=== PATIENT | male | born 1950 | race Caucasian/White ===

== ENCOUNTER 2018-02-27 11:43 | Inpatient (IN) | payer OTHER, MEDICARE ==
[2018-02-27] VITALS (8 sets, daily range): BP systolic 140–167; BP diastolic 71–97; PULSE 84–104; RESP 11–18; TEMP 97.3–98.4; O2SAT 98–100
[~2018-02-27] VITALS: Ht 172.7 cm; Wt 74.7 kg
[~2018-02-27 11:43] MED LIST: ADVA250A INH; ALBU8I INH; BETH10TA PO; CYCL1PAK PO; DILA4TAB10 PO; LORTA5 PO; METO25 PO; NICO21DI24 TD; PROT40TA PO; TAMS0.4C67 PO; ZOLP1TAB32 PO
--- NOTE | 2018-02-27 12:25 | PD ---
HPI Chief Complaint: Fall Time Seen by Provider: 12:22 Travel History International Travel<30 days: No Contact w/Intl Traveler<30days: No Traveled to known affect area: No History of Present Illness HPI 67-year-old male with difficulty hearing, presents emergency department status post fall, and hitting his head earlier this morning. This was unwitnessed. Patient is unsure if he had loss of consciousness. Patient is a small wound to the posterior scalp with minimal bleeding noted. Patient has complained of nausea and vomiting since his fall. He denies significant for headache. He has no neck pain. He denies any other injury. He has no history of anticoagulants. He has no known drug allergies. PFSH Past Medical History Cancer: No Cardiovascular Problems: No High Cholesterol: Yes Chemotherapy: No Endocrine: No Genitourinary: No Immune Disorder: No Musculoskeletal: No Neurologic: No Psychiatric: Yes (Remote history of PTSD secondary to active combat in [place]) Reproductive: No Respiratory: No Radiation Therapy: No ?: Unknown Past Surgical History Pacemaker: No Social History Alcohol Use: No Tobacco Use: Yes (1 PPD) Substance Use: No Allergies-Medications (Allergen,Severity, Reaction): Coded Allergies: No Known Allergies (Unverified Adverse Reaction, Unknown, 02/27/18) Reported Meds & Prescriptions Reported Meds & Active Scripts Active Reported Dilaudid (Hydromorphone HCl) 4 Mg Tab 4 Mg PO Q4H PRN Metoprolol Tartrate 25 mg (Metoprolol Tartrate) 25 Mg Tab 25 Mg PO BID Flomax (Tamsulosin HCl) 0.4 Mg Cap 0.4 Mg PO DAILY Ventolin Hfa (Albuterol Sulfate) 8 Gm Aero 1 Puff INH TID * SHAKE WELL BEFORE USE * USE NEEDED FOR WHEEZING AND SHORTNESS OF BREATH Advair Diskus 250/50 (Salmeterol Xinafoate/Fluticasone) 250 Mcg/50 Mcg Inhp 1 Puff INH BID Cyclobenzaprinepax 10 & 0.0375-5 mg & % (Qlsxwkyjzdbvhvp-Rybwpcwun-Wrgx) 10 Mg Tab 10 Mg PO TID Bethanechol Chloride 10 Mg Tab 10 Mg PO TID Nicotine Transdermal Syst (Nicotine) 21 Mg/24 H Dis 21 Mg TD DAILY Protonix (Pantoprazole Sodium) 40 Mg Tab 40 Mg PO BID Ambien 5 Mg Tab (Zolpidem Tartrate) 5 Mg Tab 5 Mg PO HS PRN Hydrocodone/Acetaminophen 5 mg/325 mg 1 Tab Tab 1 Tab PO Q4 PRN TAKE ONE OR TWO TABLETS FOR PAIN. Review of Systems Except as stated in HPI: all other systems reviewed are Neg General / Constitutional: No: Fever Eyes: No: Diploplia, Blurred Vision, Photophobia, Drainage, Redness, Foreign Body Sensation, Pain, Blind Spots, Visual changes HENT: Positive: Lightheadedness, Nosebleed, No: Headaches, Vertigo, Sore Throat , Rhinitis, Rhinorrhea, Congestion (Since his fall.), Neck Stiffness, Neck Pain , Masses, Gingival Bleeding, Dental Difficulties, Ear Discharge, Earache Cardiovascular: No: Chest Pain or Discomfort Respiratory: No: Shortness of Breath Gastrointestinal: Positive: Nausea, Vomiting, No: Diarrhea, Abdominal Pain Genitourinary: No: Dysuria Musculoskeletal: No: Pain Skin: Positive Lesions (See history of present illness), No Rash Neurologic: No: Weakness Psychiatric: No: Depression Endocrine: No: Polydipsia Hematologic/Lymphatic: No: Easy Bruising Physical Exam Narrative GENERAL: Patient appears in mild distress. Patient very hard of hearing. SKIN: Warm and dry. Normal color. Normal turgor. Patient has less than 1 cm superficial black to the posterior scalp with minimal bleeding. HEAD: Normocephalic. Tender in the posterior aspect. EYES: Pupils equal and round. No scleral icterus. No injection or drainage. No nystagmus. ENT: No current nasal bleeding or discharge. TMs are clear bilaterally. Mucous membranes pink and moist. No dental injury. Pharynx is clear. Airways patent NECK: Trachea midline. No bony tenderness or step-off. Neck is supple. Cervical spine cleared utilizing Nexus criteria CARDIOVASCULAR: Regular rate and rhythm. RESPIRATORY: No accessory muscle use. Clear to auscultation. Breath sounds equal bilaterally. GASTROINTESTINAL: Abdomen soft, non-tender, nondistended. Hepatic and splenic margins not palpable. MUSCULOSKELETAL: Extremities without clubbing, cyanosis, or edema. No obvious deformities. NEUROLOGICAL: Awake and alert. No obvious cranial nerve deficits. Motor grossly within normal limits. Five out of 5 muscle strength in the arms and legs. Normal speech. Patient is moving all extremities normally. PSYCHIATRIC: Appropriate mood and affect; insight and judgment normal. Data Data Last Documented VS Vital Signs Date Time Temp Pulse Resp B/P (MAP) Pulse Ox O2 Delivery O2 Flow Rate FiO2 02/27/18 14:00 96 18 152/71 (98) 98 Room Air 02/27/18 11:[address] Brain W/O Iv Contrast(Rout) (02/27/18 12:25) Complete Blood Count With Diff (02/27/18 12:25) Comprehensive Metabolic Panel (02/27/18 12:25) Prothrombin Time / Inr (Pt) (02/27/18 12:25) Act Partial Throm Time (Ptt) (02/27/18 12:25) Iv Access Insert/Monitor (02/27/18 12:25) Ecg Monitoring (02/27/18 12:25) Oximetry (02/27/18 12:25) Sodium Chloride 0.9% Flush (Ns Flush) (02/27/18 12:30) Electrocardiogram (02/27/18 12:25) Chest, Single Ap (02/27/18 12:25) Ckmb (Isoenzyme) Profile (02/27/18 12:25) Magnesium (Mg) (02/27/18 12:25) Troponin I (02/27/18 12:25) Ondansetron Odt (Zofran Odt) (02/27/18 12:30) CKMB (02/27/18 12:45) CKMB% (02/27/18 12:45) Sodium Chlor 0.9% 1000 Ml Inj (Ns 1000 M (02/27/18 14:00) Promethazine Inj (Phenergan Inj) (02/27/18 14:00) Hydromorphone Pf Inj (Dilaudid Pf Inj) (02/27/18 14:30) Prochlorperazine Inj (Compazine Inj) (02/27/18 14:30) Diphenhydramine Inj (Benadryl Inj) (02/27/18 14:30) Admit Order (Ed Use Only) (02/27/18 ) 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 Teacher / Telemetry [place].Q8H (02/27/18 14:51) Vital Signs (Adult) Q4H (02/27/18 14:51) Diet Npo (02/27/18 Dinner) Activity Bed Rest (02/27/18 14:51) Notify Dr: Other (02/27/18 14:51) Bethanechol (Urecholine) (02/27/18 18:00) Metoprolol Tartrate (Lopressor) (02/27/18 21:00) Pantoprazole (Protonix) (02/27/18 21:00) Tamsulosin (Flomax) (02/28/18 09:00) (Nf) Fluticasone-Salmeterol (Advair Disk (02/27/18 21:00) Labs Laboratory Tests Test 02/27/18 12:45 White Blood Count 15.6 TH/MM3 Red Blood Count 4.68 MIL/MM3 Hemoglobin 14.2 GM/DL Hematocrit 42.8 % Mean Corpuscular Volume 91.3 FL Mean Corpuscular Hemoglobin 30.3 PG Mean Corpuscular Hemoglobin Concent 33.2 % Red Cell Distribution Width 14.4 % Platelet Count 459 TH/MM3 Mean Platelet Volume 8.6 FL Neutrophils (%) (Auto) 92.9 % Lymphocytes (%) (Auto) 3.1 % Monocytes (%) (Auto) 3.5 % Eosinophils (%) (Auto) 0.1 % Basophils (%) (Auto) 0.4 % Neutrophils # (Auto) 14.5 TH/MM3 Lymphocytes # (Auto) 0.5 TH/MM3 Monocytes # (Auto) 0.5 TH/MM3 Eosinophils # (Auto) 0.0 TH/MM3 Basophils # (Auto) 0.1 TH/MM3 CBC Comment DIFF FINAL Differential Comment Prothrombin Time 11.1 SEC Prothromb Time International Ratio 1.1 RATIO Activated Partial Thromboplast Time 24.2 SEC Blood Urea Nitrogen 19 MG/DL Creatinine 1.42 MG/DL Random Glucose 157 MG/DL Total Protein 6.9 GM/DL Albumin 3.8 GM/DL Calcium Level 8.8 MG/DL Magnesium Level 1.6 MG/DL Alkaline Phosphatase 63 U/L Aspartate Amino Transf (AST/SGOT) 23 U/L Alanine Aminotransferase (ALT/SGPT) 31 U/L Total Bilirubin 0.4 MG/DL Sodium Level 143 MEQ/L Potassium Level 4.0 MEQ/L Chloride Level 110 MEQ/L Carbon Dioxide Level 22.4 MEQ/L Anion Gap 11 MEQ/L Estimat Glomerular Filtration Rate 50 ML/MIN Total Creatine Kinase 106 U/L Creatine Kinase MB 2.2 NG/ML Troponin I LESS THAN 0.02 NG/ML MDM Medical Decision Making Medical Screen Exam Complete: Yes Emergency Medical Condition: Yes Differential Diagnosis Accidental fall. Scalp contusion. Scalp laceration. Intracranial bleed. Loss of consciousness. Concussion syndrome. Nausea vomiting. Narrative Course Patient appears medically stable at time of exam. EKG is ordered as well as chest x-ray. CT of the head is ordered. Labs ordered including CBC, CMP, coagulation studies, and cardiac panel. IV access is obtained and the patient is given 1000 mL of normal saline bolus. Patient is given 4 mg Zofran ODT p.o. EKG shows sinus rhythm with first 80 block with occasional ventricular premature complexes. Nonspecific T-wave abnormalities are noted. No acute ST changes noted. CBC is unremarkable, except for slight leukocytosis of 13.6, platelet count was 459 which is normal for the patient compared to previous. Coagulation studies are normal with a PT of 11.1, INR is 1.1. APTT is 24.2. Chemistries show normal sodium normal potassium, chloride of 110, carbon dioxide is 22.4. BUN is 19, creatinine is 1.4 which is somewhat elevated for the patient compared to previous. GFR is 50, random glucose 157. Cardiac labs are normal with a troponin of less than 0.02. Chest x-ray showed: CONCLUSION: 1. Retrocardiac density characteristic of a hiatal hernia. Prior images are currently not accessible for confirmation. 2. No evidence of acute cardiopulmonary process. 3. Status post thoracic fusion. When patient arrived back from CT he continues to have dry heaves. Patient was given 1000 mL of normal saline bolus as well as 25 mg Phenergan IM. Head CT showed. 1. Acute subdural hematoma seen over the frontal lobes bilaterally being more prominent on the left. There is also suspected subdural hemorrhage at the anterior left middle cranial fossa around the left temporal lobe. 2. Suspected subarachnoid hemorrhage seen at the left lateral temporal lobe. 3. Small area of suspected encephalomalacia at the superior medial right frontoparietal white matter. 4. Right occipital bone fracture. 5. Right parietal scalp swelling. 1400 hrs. Call was placed to Dr. Lopes the neurosurgeon to discuss the patient' s findings. Patient remains alert and oriented 3, and moving all extremities normally. Dr. Mendoza spoke with Dr. Lopes regarding the patient, and he will be admitted to the ICU. Diagnosis Primary Impression: Occipital bone fracture Qualified Codes: S02.11AA - Type I occipital condyle fracture, right side, initial encounter for closed fracture Additional Impression: Traumatic intracranial subdural hematoma with brief loss of consciousness Admitting Information Admitting Physician Requests: Admit Condition: Stable Corey Zhong February 27, 2018 12:25
[2018-02-27] MEDS ORDERED: SODIUM CHLORIDE 0.9% FLUSH 10 ML FLUSH IV FLUSH PRN ×2 (12:30→15:00)
[2018-02-27] MEDS ORDERED: ONDANSETRON ODT 4 MG TAB PO ONE (12:30)
[2018-02-27 13:05] LABS: AUTOMATED NEUTROPHIL # 14.5 TH/MM3 (1.8-7.7); BASOPHIL # 0.1 TH/MM3 (0-0.2); BASOPHIL % 0.4 % (0.0-2.0); EOSINOPHIL % 0.1 % (0.0-4.0); HEMATOCRIT 42.8 % (39.0-51.0); HEMOGLOBIN 14.2 GM/DL (13.0-17.0); LYMPH % 3.1 % (9.0-44.0); LYMPHOCYTE # 0.5 TH/MM3 (1.0-4.8); MEAN CELL VOLUME 91.3 FL (80.0-100.0); MEAN CORPUSCULAR HEMOGLOBIN 30.3 PG (27.0-34.0); MEAN CORPUSCULAR HGB CONC 33.2 % (32.0-36.0); MEAN PLATELET VOLUME 8.6 FL (7.0-11.0); MONO % 3.5 % (0.0-8.0); MONOCYTE # 0.5 TH/MM3 (0-0.9); NEUT % 92.9 % (16.0-70.0); PLATELET COUNT 459 TH/MM3 (150-450); RED BLOOD COUNT 4.68 MIL/MM3 (4.50-5.90); RED CELL DISTRIBUTION WIDTH 14.4 % (11.6-17.2); WHITE BLOOD COUNT 15.6 TH/MM3 (4.0-11.0)
[2018-02-27 13:11] LABS: INTERNATIONAL NORMALIZED RATIO 1.1 RATIO; PROTHROMBIN TIME - PATIENT 11.1 SEC (9.8-11.6)
[2018-02-27 13:27] LABS: ALBUMIN 3.8 GM/DL (3.4-5.0); ALT (GPT) 31 U/L (12-78); AST (GOT) 23 U/L (15-37); BICARBONATE 22.4 MEQ/L (21.0-32.0); BLOOD UREA NITROGEN 19 MG/DL (7-18); CALCIUM 8.8 MG/DL (8.5-10.1); CHLORIDE 110 MEQ/L (98-107); CREATININE 1.42 MG/DL (0.60-1.30); GLOMERULAR FILTRATION RATE 50 ML/MIN (>89); GLUCOSE,RANDOM 157 MG/DL (74-106); MAGNESIUM 1.6 MG/DL (1.5-2.5); SODIUM (NA) 143 MEQ/L (136-145)
[2018-02-27 13:30] LABS: ALKALINE PHOSPHATASE 63 U/L (45-117); TOTAL BILIRUBIN ADULT 0.4 MG/DL (0.2-1.0); TOTAL PROTEIN 6.9 GM/DL (6.4-8.2); TROPONIN I LESS THAN 0.02 NG/ML (0.02-0.05)
--- NOTE | 2018-02-27 13:36 | RADRPT ---
EXAM DATE: 02/27/2018 1:27 PM EDT AGE/SEX: 67 years / Male INDICATIONS: Shortness of breath and dizziness after fall. CLINICAL DATA: This is the patient's initial encounter. Patient reports that signs and symptoms have been present for 1 day and indicates a pain score of 0/10. MEDICAL/SURGICAL HISTORY: None. . Fernández rods. COMPARISON: [facility], CHEST SINGLE AP, 08/22/2013. . FINDINGS: Lungs are hyperinflated. Focal density in the retrocardiac region can be seen on prior chest radiograph and likely represents a hiatal hernia. Lungs are otherwise clear. Heart remains normal in size. Midthoracic fixation rods are again noted. CONCLUSION: 1. Retrocardiac density characteristic of a hiatal hernia. Prior images are currently not accessible for confirmation. 2. No evidence of acute cardiopulmonary process. 3. Status post thoracic fusion. Electronically signed by: Alton Cruz MD 02/27/2018 1:34 PM EDT
[2018-02-27] MEDS ORDERED: PROMETHAZINE INJ 25 MG/ML VIAL IM ONE (14:00)
[2018-02-27] MEDS ORDERED: SODIUM CHLOR 0.9% 1000 ML INJ 1,000 ML IV ONE (14:00)
--- NOTE | 2018-02-27 14:02 | RADRPT ---
EXAM DATE: 02/27/2018 1:46 PM EDT AGE/SEX: 67 years / Male INDICATIONS: Patient fell, hit head. Patient has nausea and vomiting. CLINICAL DATA: This is the patient's initial encounter. Patient reports that signs and symptoms have been present for 1 day and indicates a pain score of 7/10. MEDICAL/SURGICAL HISTORY: None. None. RADIATION DOSE: 56.35 CTDI (mGy) COMPARISON: [facility] [place], [place] BRAIN W/O CONTRAST, 08/14/2013. . TECHNIQUE: CT of the head without contrast. Using automated exposure control and adjustment of the mA and/or kV according to patient size, radiation dose was kept as low as reasonably achievable to ob tain optimal diagnostic quality images. FINDINGS: Cerebrum: There is an acute left frontal subdural hematoma measuring up to 6 mm. There is minimal ac tatitlek right frontal subdural hematoma with the computed component measuring 2 mm. There are some more p eripheral axial fluid seen in the frontal lobes which may be chronic hygromas. There also is extra-ax ial hemorrhage seen at the anterior left middle cranial fossa temporal lobe likely related to a subdu ral hematoma measuring up to 6 mm. There may be some is associated subarachnoid hemorrhage seen at th e lateral anterior left temporal region. There is increased density at the inferior posterior left fr ontal lobe. It is uncertain if this represents small areas of hemorrhage versus some volume averaging with the floor of the anterior cranial fossa. There is some effacement of the sulci at the anterior inferior frontal lobes and at the left temporal lobe. Remaining sulci appear intact. The ventricles a re normal for age. There is low density in the superior right frontoparietal white matter. This was present previously. No evidence of midline shift, mass lesion, hemorrhage or acute infarction. No ex traaxial fluid collections are seen. Posterior Fossa: The cerebellum and brainstem are intact. The 4th ventricle is midline. The cerebe llopontine angle is unremarkable. Extracranial: The visualized portion of the orbits is intact. There is soft tissue swelling at the p osterior medial right parietal scalp. There is ethmoid and left sphenoid fluid or sinus disease. Skull: There is a nondisplaced right occipital bone fracture. CONCLUSION: 1. Acute subdural hematoma seen over the frontal lobes bilaterally being more prominent on the left. There is also suspected subdural hemorrhage at the anterior left middle cranial fossa around the lef t temporal lobe. 2. Suspected subarachnoid hemorrhage seen at the left lateral temporal lobe. 3. Small area of suspected encephalomalacia at the superior medial right frontoparietal white matter . 4. Right occipital bone fracture. 5. Right parietal scalp swelling. Electronically signed by: Donn Art MD 02/27/2018 2:01 PM EDT
--- NOTE | 2018-02-27 14:11 | PD ---
Data Data Last Documented VS Vital Signs Date Time Temp Pulse Resp B/P (MAP) Pulse Ox O2 Delivery O2 Flow Rate FiO2 02/27/18 14:00 96 18 152/71 (98) 98 Room Air 02/27/18 11:[address] Brain W/O Iv Contrast(Rout) (02/27/18 12:25) Complete Blood Count With Diff (02/27/18 12:25) Comprehensive Metabolic Panel (02/27/18 12:25) Prothrombin Time / Inr (Pt) (02/27/18 12:25) Act Partial Throm Time (Ptt) (02/27/18 12:25) Iv Access Insert/Monitor (02/27/18 12:25) Ecg Monitoring (02/27/18 12:25) Oximetry (02/27/18 12:25) Sodium Chloride 0.9% Flush (Ns Flush) (02/27/18 12:30) Electrocardiogram (02/27/18 12:25) Chest, Single Ap (02/27/18 12:25) Ckmb (Isoenzyme) Profile (02/27/18 12:25) Magnesium (Mg) (02/27/18 12:25) Troponin I (02/27/18 12:25) Ondansetron Odt (Zofran Odt) (02/27/18 12:30) CKMB (02/27/18 12:45) CKMB% (02/27/18 12:45) Sodium Chlor 0.9% 1000 Ml Inj (Ns 1000 M (02/27/18 14:00) Promethazine Inj (Phenergan Inj) (02/27/18 14:00) Hydromorphone Pf Inj (Dilaudid Pf Inj) (02/27/18 14:30) Prochlorperazine Inj (Compazine Inj) (02/27/18 14:30) Diphenhydramine Inj (Benadryl Inj) (02/27/18 14:30) Admit Order (Ed Use Only) (02/27/18 ) Visual Merchandising Director / Telemetry [place].Q8H (02/27/18 14:51) Vital Signs (Adult) Q4H (02/27/18 14:51) Diet Npo (02/27/18 Dinner) Activity Bed Rest (02/27/18 14:51) Notify Dr: Other (02/27/18 14:51) Labs Laboratory Tests Test 02/27/18 12:45 White Blood Count 15.6 TH/MM3 Red Blood Count 4.68 MIL/MM3 Hemoglobin 14.2 GM/DL Hematocrit 42.8 % Mean Corpuscular Volume 91.3 FL Mean Corpuscular Hemoglobin 30.3 PG Mean Corpuscular Hemoglobin Concent 33.2 % Red Cell Distribution Width 14.4 % Platelet Count 459 TH/MM3 Mean Platelet Volume 8.6 FL Neutrophils (%) (Auto) 92.9 % Lymphocytes (%) (Auto) 3.1 % Monocytes (%) (Auto) 3.5 % Eosinophils (%) (Auto) 0.1 % Basophils (%) (Auto) 0.4 % Neutrophils # (Auto) 14.5 TH/MM3 Lymphocytes # (Auto) 0.5 TH/MM3 Monocytes # (Auto) 0.5 TH/MM3 Eosinophils # (Auto) 0.0 TH/MM3 Basophils # (Auto) 0.1 TH/MM3 CBC Comment DIFF FINAL Differential Comment Prothrombin Time 11.1 SEC Prothromb Time International Ratio 1.1 RATIO Activated Partial Thromboplast Time 24.2 SEC Blood Urea Nitrogen 19 MG/DL Creatinine 1.42 MG/DL Random Glucose 157 MG/DL Total Protein 6.9 GM/DL Albumin 3.8 GM/DL Calcium Level 8.8 MG/DL Magnesium Level 1.6 MG/DL Alkaline Phosphatase 63 U/L Aspartate Amino Transf (AST/SGOT) 23 U/L Alanine Aminotransferase (ALT/SGPT) 31 U/L Total Bilirubin 0.4 MG/DL Sodium Level 143 MEQ/L Potassium Level 4.0 MEQ/L Chloride Level 110 MEQ/L Carbon Dioxide Level 22.4 MEQ/L Anion Gap 11 MEQ/L Estimat Glomerular Filtration Rate 50 ML/MIN Total Creatine Kinase 106 U/L Creatine Kinase MB 2.2 NG/ML Troponin I LESS THAN 0.02 NG/ML [facility] Medical Record Reviewed: Yes Supervised Visit with REYES: Yes Narrative Course I, Dr. Mendoza, have reviewed the advance practice practitioner's documentation and am in agreement, met with the patient face to face, made the diagnosis, and the medical decision making was done by me. *My assessment and Findings: Bilateral subdural hemorrhage without evidence of herniation present on CT imaging. This was discussed with the patient. He has GCS 15 although is quite hard of hearing. He will be admitted for neurosurgery management. He does not take anticoagulants. Pt seen by Peyman Elise for Dr Lopes. Admission to [facility]. d/w Dr Clemons. Pt with moderate cephalgia at 240pm. Dilaudid and compazine ordered at 240pm. Diagnosis Primary Impression: Traumatic intracranial subdural hematoma with brief loss ofconsciousness Additional Impression: Pito Nair MD February 27, 2018 14:11
[2018-02-27] MEDS ORDERED: PROCHLORPERAZINE INJ 10 MG/2 ML VIAL IV PUSH ONE (14:30)
[2018-02-27] MEDS ORDERED: diphenhydrAMINE HCL 50 MG/ML VIAL IV PUSH ONE (14:30)
[2018-02-27] MEDS ORDERED: HYDROmorphone HCL PF 2 MG/ML VIAL IV PUSH ONE (14:30)
[2018-02-27] MEDS ORDERED: CLEVIDIPINE INJ 50 ML IV PRN (15:00)
[2018-02-27] MEDS ORDERED: LACTULOSE SYRUP 20 GM/30 ML CUP PO PRN (15:00)
[2018-02-27] MEDS ORDERED: RESP: ALBUTEROL 2.5 MG/3 ML NEB (PRN) INH (15:00)
[2018-02-27] MEDS ORDERED: BISACODYL 10 MG SUPP RECTAL PRN (15:00)
[2018-02-27] MEDS ORDERED: CHLORHEXIDINE GLUCONATE 2 % 1 PACK (2 CLOTHS) TOP PRN (15:00)
[2018-02-27] MEDS ORDERED: MAGNESIUM HYDROXIDE SUSP 30 ML CUP PO PRN (15:00)
[2018-02-27] MEDS ORDERED: NURSING INFORMATION XX SCH (15:00)
[2018-02-27] MEDS ORDERED: ACETAMINOPHEN 325 MG TAB PO PRN (15:00)
[2018-02-27] MEDS ORDERED: SENNOSIDES 8.6 MG TAB PO PRN (15:00)
[2018-02-27] MEDS: SODIUM CHLOR 0.9% 1000 ML INJ 1,000 ML IV SCH (15:22)
[2018-02-27] MEDS: RESP: ALBUTEROL 2.5 MG/IPRATROPIUM 0.5 MG NEB (SCH) INH ×2 (15:26→20:46)
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
[2018-02-27] MEDS ORDERED: DEXTROSE 50% IN WATER 50 ML VIAL(D50) IV PUSH PRN (15:30)
[2018-02-27] MEDS ORDERED: PROCHLORPERAZINE INJ 10 MG/2 ML VIAL IV PUSH PRN (15:30)
[2018-02-27] MEDS ORDERED: GLUCAGON 1 MG/ML VIAL OTHER PRN (15:30)
[2018-02-27] MEDS ORDERED: PROMETHAZINE HCL 25 MG SUPP RECTAL PRN (15:30)
[2018-02-27] MEDS: INSULIN NovoLIN REGULAR SUPPLEMENTAL SCALE SQ SCH ×2 (17:00→20:14)
[2018-02-27] MEDS: BETHANECHOL CHL 10 MG TAB PO SCH (18:00)
[2018-02-27] MEDS: ARTIFICIAL TEARS OPTH SOLN 15 ML BTL EACH EYE SCH (18:00)
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
[2018-02-27] MEDS: LABETALOL HCL 100 MG/20 ML VIAL IV PUSH PRN ×2 (18:52→20:14)
--- NOTE | 2018-02-27 19:37 | RADRPT ---
EXAM DATE: 02/27/2018 7:28 PM EDT AGE/SEX: 67 years / Male INDICATIONS: Syncope x 1 day. CLINICAL DATA: This is the patient's initial encounter. Patient reports that signs and symptoms have been present for 1 day and indicates a pain score of 0/10. MEDICAL/SURGICAL HISTORY: Hypertension. Hypercholesterolemia. Chronic obstructive pulmonary d isease. . History of VATS/right lung decortication with partial pleurectomy secondary to fibrothorax/ lung entrapment.T7 laminectomy with partial corpectomy/T5 through 9 posterior/lateral fusion. COMPARISON: No prior [facility] exams available for comparison. No external comparison. VELOCITY PARAMETERS: ICA/CCA Ratio: Right 1.15 , Left 0.79 ICA: Right 88 cm/sec, Left 74 cm/sec CCA: Right 76 cm/sec, Left 94 cm/sec ECA: Right 103 cm/sec, Left 90 cm/sec Vertebral: Right 40 cm/sec antegrade, Left 45 cm/sec antergrade FINDINGS: Right Carotid: No significant stenosis is visualized. The waveforms are within normal limits. Left Carotid: No significant stenosis is visualized. The waveforms are within normal limits. Other: None. CONCLUSION: 1. Right Internal Carotid Artery: Findings indicate <50% stenosis. 2. Left Internal Carotid Artery: No significant stenosis or atherosclerotic plaque is visualized. Electronically signed by: Adam Borja MD 02/27/2018 7:35 PM EDT
[2018-02-27] MEDS: PANTOPRAZOLE SOD 40 MG DELAYED RELEASE TAB PO SCH (20:13)
[2018-02-27] MEDS: DOCUSATE SODIUM 50 MG/SENNA 8.6 MG TAB PO SCH (20:14)
[2018-02-27] MEDS: SODIUM CHLORIDE 0.9% FLUSH 10 ML FLUSH IV FLUSH SCH (20:14)
[2018-02-27] MEDS: BUDESONIDE-FORMOTEROL 160/4.5 MCG INHALER INH SCH (21:00)
[2018-02-27] MEDS ORDERED: METOPROLOL TARTRATE 25 MG TAB PO SCH (21:00)
[2018-02-28] VITALS (15 sets, daily range): BP systolic 114–160; BP diastolic 58–93; PULSE 70–116; RESP 15–24; TEMP 97.9–99.4; O2SAT 92–99
[2018-02-28] MEDS: ACETAMINOPHEN/HYDROcodone 325 MG/5 MG TAB PO PRN ×2 (00:12→06:07)
[2018-02-28 01:52] LABS: BICARBONATE 23.9 MEQ/L (21.0-32.0); BLOOD UREA NITROGEN 16 MG/DL (7-18); CALCIUM 8.6 MG/DL (8.5-10.1); CHLORIDE 108 MEQ/L (98-107); CREATININE 1.29 MG/DL (0.60-1.30); GLOMERULAR FILTRATION RATE 55 ML/MIN (>89); GLUCOSE,RANDOM 132 MG/DL (74-106); MAGNESIUM 1.7 MG/DL (1.5-2.5); SODIUM (NA) 142 MEQ/L (136-145)
[2018-02-28] MEDS: ISOPROTERENOL INJ 2 MG in DEXTROSE 5% IN WATER INJ 250 ML IV PRN ×4 (01:54→17:30)
[2018-02-28 01:55] LABS: PHOSPHORUS 2.3 MG/DL (2.5-4.9); TROPONIN I LESS THAN 0.02 NG/ML (0.02-0.05)
[2018-02-28] MEDS: SODIUM CHLOR 0.9% 1000 ML INJ 1,000 ML IV SCH ×2 (03:22→14:22)
[2018-02-28 03:57] LABS: AUTOMATED NEUTROPHIL # 12.5 TH/MM3 (1.8-7.7); BASOPHIL # 0.1 TH/MM3 (0-0.2); BASOPHIL % 0.4 % (0.0-2.0); HEMATOCRIT 39.1 % (39.0-51.0); HEMOGLOBIN 12.9 GM/DL (13.0-17.0); LYMPH % 5.7 % (9.0-44.0); LYMPHOCYTE # 0.8 TH/MM3 (1.0-4.8); MEAN CELL VOLUME 91.9 FL (80.0-100.0); MEAN CORPUSCULAR HEMOGLOBIN 30.3 PG (27.0-34.0); MEAN PLATELET VOLUME 8.7 FL (7.0-11.0); MONO % 5.9 % (0.0-8.0); MONOCYTE # 0.8 TH/MM3 (0-0.9); PLATELET COUNT 391 TH/MM3 (150-450); RED BLOOD COUNT 4.25 MIL/MM3 (4.50-5.90); RED CELL DISTRIBUTION WIDTH 14.5 % (11.6-17.2); WHITE BLOOD COUNT 14.2 TH/MM3 (4.0-11.0)
[2018-02-28] MEDS: CHLORHEXIDINE GLUCONATE 2 % 1 PACK (2 CLOTHS) TOP SCH (04:00)
[2018-02-28] MEDS: RESP: ALBUTEROL 2.5 MG/IPRATROPIUM 0.5 MG NEB (SCH) INH ×4 (04:01→21:25)
[2018-02-28 04:28] LABS: ALBUMIN 3.4 GM/DL (3.4-5.0); ALT (GPT) 24 U/L (12-78); AST (GOT) 22 U/L (15-37); BICARBONATE 25.7 MEQ/L (21.0-32.0); BLOOD UREA NITROGEN 16 MG/DL (7-18); CALCIUM 8.4 MG/DL (8.5-10.1); CREATININE 1.32 MG/DL (0.60-1.30); GLOMERULAR FILTRATION RATE 54 ML/MIN (>89); GLUCOSE,RANDOM 142 MG/DL (74-106); MAGNESIUM 1.7 MG/DL (1.5-2.5); PHOSPHORUS 2.8 MG/DL (2.5-4.9)
[2018-02-28 04:53] LABS: CHLORIDE 108 MEQ/L (98-107); SODIUM (NA) 143 MEQ/L (136-145)
[2018-02-28 04:55] LABS: ALKALINE PHOSPHATASE 59 U/L (45-117); TOTAL PROTEIN 6.4 GM/DL (6.4-8.2)
[2018-02-28 04:57] LABS: TOTAL BILIRUBIN ADULT 0.5 MG/DL (0.2-1.0)
[2018-02-28 05:27] LABS: INTERNATIONAL NORMALIZED RATIO 1.1 RATIO; PROTHROMBIN TIME - PATIENT 10.8 SEC (9.8-11.6)
--- NOTE | 2018-02-28 05:40 | RADRPT ---
EXAM DATE: 02/28/2018 5:20 AM EDT AGE/SEX: 67 years / Male INDICATIONS: Evaluate hematoma. CLINICAL DATA: This is the patient's initial encounter. Patient reports that signs and symptoms have been present for 1 day and indicates a pain score of 3/10. MEDICAL/SURGICAL HISTORY: Hypertension. Chronic obstructive pulmonary disease. None. RADIATION DOSE: 56.35 CTDI (mGy) COMPARISON: [facility] [place], CT BRAIN W/O CONTRAST, 02/27/2018. . TECHNIQUE: CT of the head without contrast. Using automated exposure control and adjustment of the mA and/or kV according to patient size, radiation dose was kept as low as reasonably achievable to ob tain optimal diagnostic quality images. FINDINGS: The previously noted high density small subdural hematomas along the lower anterior frontal lobes are not significantly changed. The subdural hematoma along the left anterior temporal lobe is also fairl y stable in appearance. Mild diffuse atrophic changes are noted. The low-attenuation area involving t he right parietal lobe is stable. There is no new hemorrhage, mass effect or midline shift. The ventr icular system remains within normal. The posterior fossa and brainstem remain unremarkable. The bone windows again demonstrate a nondisplaced right occipital bone fracture. An air-fluid level is again n oted in the left sphenoid sinus. There is opacification of multiple ethmoid air cells bilaterally. CONCLUSION: 1. No significant change in the high density subdural hematomas over the frontal lobes and anterior left parietal lobe. 2. No new hemorrhage or mass effect. 3. Stable low-attenuation area noted in the right parietal lobe. 4. Stable appearance the right occipital bone fracture. Electronically signed by: Anand Leonard MD 02/28/2018 5:39 AM EDT
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
[2018-02-28] MEDS ORDERED: MAGNESIUM SULFATE 1 GM PREMIX 100 ML IV ONE (06:15)
[2018-02-28] MEDS ORDERED: POTASSIUM CHLORIDE 20 MEQ CONTROLLED RELEASE TAB PO ONE (07:30)
[2018-02-28] MEDS: INSULIN NovoLIN REGULAR SUPPLEMENTAL SCALE SQ SCH ×4 (08:00→21:00)
[2018-02-28] MEDS ORDERED: LACTATED RINGER'S 1000 ML INJ 1,000 ML IV ONE (08:15)
[2018-02-28] MEDS: SODIUM CHLORIDE 0.9% FLUSH 10 ML FLUSH IV FLUSH SCH ×2 (08:46→20:21)
[2018-02-28] MEDS: ARTIFICIAL TEARS OPTH SOLN 15 ML BTL EACH EYE SCH ×3 (09:00→17:29)
[2018-02-28] MEDS ORDERED: TAMSULOSIN HCL 0.4 MG CAP PO SCH (09:00)
[2018-02-28] MEDS: BETHANECHOL CHL 10 MG TAB PO SCH ×3 (09:00→17:29)
[2018-02-28] MEDS: BUDESONIDE-FORMOTEROL 160/4.5 MCG INHALER INH SCH ×2 (09:00→21:00)
[2018-02-28] MEDS: PANTOPRAZOLE SOD 40 MG DELAYED RELEASE TAB PO SCH ×2 (09:18→20:21)
[2018-02-28] MEDS: MAGNESIUM SULFATE 1 GM PREMIX 100 ML IV SCH ×2 (09:18→10:41)
[2018-02-28] MEDS: DOCUSATE SODIUM 50 MG/SENNA 8.6 MG TAB PO SCH ×2 (09:19→20:21)
[2018-02-28 13:20] LABS: MAGNESIUM 2.3 MG/DL (1.5-2.5)
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
[2018-02-28 13:23] LABS: TROPONIN I LESS THAN 0.02 NG/ML (0.02-0.05)
[2018-02-28] MEDS ORDERED: POTASSIUM CHLORIDE 10 MEQ CONTROLLED RELEASE TAB PO ONE (15:00)
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
[2018-03-01] VITALS (13 sets, daily range): BP systolic 146–163; BP diastolic 70–89; PULSE 64–105; RESP 14–23; TEMP 98.3–99.2; O2SAT 92–99
[2018-03-01] MEDS: SODIUM CHLOR 0.9% 1000 ML INJ 1,000 ML IV SCH ×2 (03:35→18:28)
[2018-03-01] MEDS: CHLORHEXIDINE GLUCONATE 2 % 1 PACK (2 CLOTHS) TOP SCH (04:00)
[2018-03-01] MEDS: RESP: ALBUTEROL 2.5 MG/IPRATROPIUM 0.5 MG NEB (SCH) INH ×4 (04:27→20:21)
[2018-03-01 05:10] LABS: AUTOMATED NEUTROPHIL # 9.7 TH/MM3 (1.8-7.7); BASOPHIL % 0.2 % (0.0-2.0); HEMATOCRIT 37.7 % (39.0-51.0); HEMOGLOBIN 12.5 GM/DL (13.0-17.0); LYMPHOCYTE # 0.4 TH/MM3 (1.0-4.8); MEAN CELL VOLUME 91.5 FL (80.0-100.0); MEAN CORPUSCULAR HEMOGLOBIN 30.4 PG (27.0-34.0); MEAN CORPUSCULAR HGB CONC 33.2 % (32.0-36.0); MEAN PLATELET VOLUME 8.8 FL (7.0-11.0); MONO % 7.6 % (0.0-8.0); MONOCYTE # 0.8 TH/MM3 (0-0.9); NEUT % 88.2 % (16.0-70.0); PLATELET COUNT 380 TH/MM3 (150-450); RED BLOOD COUNT 4.12 MIL/MM3 (4.50-5.90)
[2018-03-01 05:26] LABS: ALBUMIN 3.3 GM/DL (3.4-5.0); AST (GOT) 29 U/L (15-37); BLOOD UREA NITROGEN 11 MG/DL (7-18); CALCIUM 8.4 MG/DL (8.5-10.1); CHLORIDE 107 MEQ/L (98-107); CREATININE 1.09 MG/DL (0.60-1.30); GLOMERULAR FILTRATION RATE 67 ML/MIN (>89); GLUCOSE,RANDOM 137 MG/DL (74-106); SODIUM (NA) 141 MEQ/L (136-145)
[2018-03-01 05:27] LABS: ALT (GPT) 24 U/L (12-78); PHOSPHORUS 1.8 MG/DL (2.5-4.9)
[2018-03-01 05:36] LABS: ALKALINE PHOSPHATASE 60 U/L (45-117); FREE T3 2.01 PG/ML (2.18-3.98); FREE T4 1.03 NG/DL (0.76-1.46); TOTAL BILIRUBIN ADULT 0.5 MG/DL (0.2-1.0); TOTAL PROTEIN 6.3 GM/DL (6.4-8.2)
[2018-03-01] MEDS: ACETAMINOPHEN/HYDROcodone 325 MG/5 MG TAB PO PRN ×2 (06:00→09:36)
[2018-03-01] MEDS: ISOPROTERENOL INJ 2 MG in DEXTROSE 5% IN WATER INJ 250 ML IV PRN ×2 (07:46)
[2018-03-01] MEDS: INSULIN NovoLIN REGULAR SUPPLEMENTAL SCALE SQ SCH ×4 (07:47→20:21)
--- NOTE | 2018-03-01 08:13 | EKG ---
Date Performed: 02/27/2018 Time Performed: 21:58:25 PTAGE: 67 years EKG: Sinus rhythm WITH FIRST DEGREE AV BLOCK WITH FREQUENT VENTRICULAR PREMATURE COMPLEXES NONSPECIFIC T-WAVE ABNORMAL ITY ABNORMAL ECG PREVIOUS TRACING : 02/27/2018 12.55 DOCTOR: Trung Campbell Interpretating Date/Time 03/01/2018 08:11:27
--- NOTE | 2018-03-01 08:29 | EKG ---
Date Performed: 02/27/2018 Time Performed: 12:55:15 PTAGE: 67 years EKG: Sinus rhythm WITH FIRST DEGREE AV BLOCK WITH OCCASIONAL VENTRICULAR PREMATURE COMPLEXES NONSPECIFIC T-WAVE ABNORM ALITY ABNORMAL ECG PREVIOUS TRACING : 08/21/2013 15.00 DOCTOR: Trung Campbell Interpretating Date/Time 03/01/2018 08:19:06
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
[2018-03-01] MEDS: LEVOTHYROXINE SODIUM 25 MCG TAB PO SCH (08:45)
[2018-03-01] MEDS ORDERED: POTASSIUM CHLORIDE 25 MEQ EFFERVESCENT TAB PO ONE (08:45)
[2018-03-01] MEDS: SODIUM CHLORIDE 0.9% FLUSH 10 ML FLUSH IV FLUSH SCH ×2 (09:00→20:21)
[2018-03-01] MEDS: ARTIFICIAL TEARS OPTH SOLN 15 ML BTL EACH EYE SCH ×3 (09:00→18:00)
[2018-03-01] MEDS: PANTOPRAZOLE SOD 40 MG DELAYED RELEASE TAB PO SCH ×2 (09:35→20:21)
[2018-03-01] MEDS: BETHANECHOL CHL 10 MG TAB PO SCH ×3 (09:35→18:00)
[2018-03-01] MEDS: DOCUSATE SODIUM 50 MG/SENNA 8.6 MG TAB PO SCH ×2 (09:36→20:21)
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
--- NOTE | 2018-03-01 10:15 | MG ---
cc: Jarocho Borjas MD EEG NUMBER: [id number] INDICATIONS: This is a 67-year-old man who fell, hit his head, subarachnoid hemorrhage. MEDICATIONS: Insulin. DESCRIPTION: Diffuse alpha and beta rhythms are seen. He recording overall is synchronous and symmetric. I do not see any epileptiform or seizure activity. No hemisphere asymmetries are noted. Hyperventilation is not performed. Photic stimulation is performed at the end of the recording without significant posterior driving. IMPRESSION: Normal awake electroencephalogram. No evidence for a focal or diffuse abnormality. Jarocho Borjas MD DJM/DL , 10:06 AM , 10:14 AM
--- NOTE | 2018-03-01 14:10 | PD.CARD.PN ---
Subjective Subjective Remarks alert in nad Objective Medications Current Medications Medications (Trade) Dose Ordered Sig/Jose De Jesus Route Start Time Stop Time Status Last Admin (Urecholine) 10 mg TID PO 02/27/18 18:00 03/01/18 09:35 (Protonix) 40 mg BID PO 02/27/18 21:00 03/01/18 09:35 (Flomax) 0.4 mg DAILY PO 02/28/18 09:00 Future Hold 02/28/18 09:18 (Symbicort 160-4.5 Mcg Inh) 2 puff BID INH 02/27/18 21:00 02/28/18 09:00 Sodium Chloride 1,000 ml @ 50 mls/hr Q20H IV 02/27/18 15:00 03/01/18 03:35 (NS Flush) 2 ml UNSCH PRN IV FLUSH 02/27/18 15:00 (NS Flush) 2 ml BID IV FLUSH 02/27/18 21:00 02/28/18 20:21 (Tylenol) 650 mg Q6H PRN PO 02/27/18 15:00 02/27/18 20:13 (Morphine Inj) 2 mg Q2H PRN IV PUSH 02/27/18 15:00 (Tears Naturale Opth Soln) 1 drop TID EACH EYE 02/27/18 18:00 03/01/18 09:00 (Zofran Odt) 4 mg Q6H PRN PO 02/27/18 15:15 (Duoneb Neb) 1 ampule Q6HR NEB INH 02/27/18 16:00 03/01/18 08:56 (Albuterol Neb) 2.5 mg Q2HR NEB PRN INH 02/27/18 15:00 ([facility] [place] [facility] [place] 1 Q361D XX 02/27/18 15:00 02/27/18 15:00 (Chlorhexidine 2% Cloth) 3 pack Taper DAILY@04 TOP 02/28/18 04:00 02/24/19 03:59 03/01/18 04:00 (Chlorhexidine 2% Cloth) 3 pack UNSCH PRN TOP 02/27/18 15:00 (Asha-Colace) 1 tab BID PO 02/27/18 21:00 03/01/18 09:36 (Milk Of Magnesia Liq) 30 ml Q12H PRN PO 02/27/18 15:00 (Senokot) 17.2 mg Q12H PRN PO 02/27/18 15:00 (Dulcolax Supp) 10 mg DAILY PRN RECTAL 02/27/18 15:00 (Lactulose Liq) 30 ml DAILY PRN PO 02/27/18 15:00 Clevidipine 50 ml @ 2 mls/hr TITRATE PRN IV 02/27/18 15:00 (Compazine Inj) 5 mg Q4H PRN IV PUSH 02/27/18 15:30 (Phenergan Supp) 25 mg Q6H PRN RECTAL 02/27/18 15:30 (D50w (Vial) Inj) 50 ml UNSCH PRN IV PUSH 02/27/18 15:30 (Glucagon Inj) 1 mg UNSCH PRN OTHER 02/27/18 15:30 (NovoLIN R SUPPLEMENTAL SCALE) 1 ACHS SLIDING SCALE SQ 02/27/18 17:00 02/27/18 20:14 Isoproterenol HCl 2 mg/Dextrose 260 ml @ 7.8 mls/hr TITRATE PRN IV 02/28/18 01:00 03/01/18 07:46 (Synthroid) 25 mcg DAILY@0600 PO 03/01/18 08:45 ([place] 7.5-325 Mg) 1 tab Q4H PRN PO 03/01/18 10:30 Vital Signs / I&O Vital Signs Date Time Temp Pulse Resp B/P (MAP) Pulse Ox O2 Delivery O2 Flow Rate FiO2 03/01/18 14:00 99 03/01/18 12:00 69 03/01/18 12:00 99.0 64 14 148/80 (102) 95 03/01/18 10:32 65 150/82 03/01/18 10:00 72 03/01/18 08:07 95 03/01/18 08:00 76 03/01/18 08:00 99.2 95 20 154/70 (98) 96 03/01/18 07:46 78 165/79 03/01/18 07:00 Room Air 03/01/18 06:00 98 03/01/18 04:00 98.6 92 23 163/79 (107) 99 03/01/18 04:00 92 03/01/18 02:00 87 5/25/18 00:00 105 03/01/18 00:00 98.9 105 21 160/74 (102) 92 02/28/18 22:00 103 02/28/18 21:27 98 21 02/28/18 20:00 106 02/28/18 20:00 92 Nasal Cannula 2.00 02/28/18 20:00 98.4 106 16 160/74 (102) 92 02/28/18 18:00 116 02/28/18 17:30 102 147/73 02/28/18 16:00 98.6 108 16 143/68 (93) 94 02/28/18 16:00 82 I/O 02/28/18 02/28/18 02/28/18 03/01/18 03/01/18 03/01/18 07:00 15:00 23:00 07:00 15:00 23:00 Intake Total 1000 ml 1200 ml 250 ml 1000 ml 130 ml Output Total 700 ml 675 ml 975 ml Balance 300 ml 1200 ml -425 ml 25 ml 130 ml Intake IV Total 1000 ml 1200 ml 250 ml 1000 ml 130 ml Output Urine Total 700 ml 675 ml 975 ml # Voids 6 5 5 # Bowel Movements 0 0 0 Physical Exam GENERAL: SKIN: Warm and dry. HEAD: Normocephalic. EYES: No scleral icterus. No injection or drainage. NECK: Supple, trachea midline. No JVD or lymphadenopathy. CARDIOVASCULAR: Regular rate and rhythm without murmurs, gallops, or rubs. RESPIRATORY: Breath sounds equal bilaterally. No accessory muscle use. GASTROINTESTINAL: Abdomen soft, non-tender, nondistended. MUSCULOSKELETAL: No cyanosis, or edema. BACK: Nontender without obvious deformity. No CVA tenderness. Laboratory Laboratory Tests Test 03/01/18 03:59 03/01/18 12:30 White Blood Count 11.0 TH/MM3 Red Blood Count 4.12 MIL/MM3 Hemoglobin 12.5 GM/DL Hematocrit 37.7 % Mean Corpuscular Volume 91.5 FL Mean Corpuscular Hemoglobin 30.4 PG Mean Corpuscular Hemoglobin Concent 33.2 % Red Cell Distribution Width 14.0 % Platelet Count 380 TH/MM3 Mean Platelet Volume 8.8 FL Neutrophils (%) (Auto) 88.2 % Lymphocytes (%) (Auto) 4.0 % Monocytes (%) (Auto) 7.6 % Eosinophils (%) (Auto) 0.0 % Basophils (%) (Auto) 0.2 % Neutrophils # (Auto) 9.7 TH/MM3 Lymphocytes # (Auto) 0.4 TH/MM3 Monocytes # (Auto) 0.8 TH/MM3 Eosinophils # (Auto) 0.0 TH/MM3 Basophils # (Auto) 0.0 TH/MM3 CBC Comment DIFF FINAL Differential Comment Blood Urea Nitrogen 11 MG/DL Creatinine 1.09 MG/DL Random Glucose 137 MG/DL Total Protein 6.3 GM/DL Albumin 3.3 GM/DL Calcium Level 8.4 MG/DL Phosphorus Level 1.8 MG/DL Magnesium Level 2.0 MG/DL Alkaline Phosphatase 60 U/L Aspartate Amino Transf (AST/SGOT) 29 U/L Alanine Aminotransferase (ALT/SGPT) 24 U/L Total Bilirubin 0.5 MG/DL Sodium Level 141 MEQ/L Potassium Level 3.6 MEQ/L Chloride Level 107 MEQ/L Carbon Dioxide Level 24.0 MEQ/L Anion Gap 10 MEQ/L Estimat Glomerular Filtration Rate 67 ML/MIN Free Thyroxine 1.03 NG/DL Free Triiodothyronine (T3) pg/dL 2.01 PG/ML Lactic Acid Level 1.9 mmol/L Assessment and Plan Problem List: (1) Asystole ICD Codes: I46.9 - Cardiac arrest, cause unspecified (2) Fall ICD Codes: W19.XXXA - Unspecified fall, initial encounter Status: Acute (3) Traumatic intracranial subdural hematoma with brief loss ofconsciousness Status: Acute Assessment and Plan 1.) Asystole - stable on isopril, agree with Dr Andersen to consult EP for ppm placement Nick Bennett MD March 01, 2018 14:10
[2018-03-01] MEDS: ACETAMINOPHEN/HYDROcodone 325 MG/7.5 MG TAB PO PRN ×2 (15:03→20:49)
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
[2018-03-01] MEDS: BUDESONIDE-FORMOTEROL 160/4.5 MCG INHALER INH SCH (21:00)
[2018-03-02] VITALS (14 sets, daily range): BP systolic 149–162; BP diastolic 64–93; PULSE 61–122; RESP 13–22; TEMP 98–99; O2SAT 91–98
[2018-03-02] MEDS: ACETAMINOPHEN/HYDROcodone 325 MG/7.5 MG TAB PO PRN ×6 (00:53→23:00)
[2018-03-02] MEDS: RESP: ALBUTEROL 2.5 MG/IPRATROPIUM 0.5 MG NEB (SCH) INH ×4 (03:58→22:15)
[2018-03-02] MEDS: CHLORHEXIDINE GLUCONATE 2 % 1 PACK (2 CLOTHS) TOP SCH (04:00)
[2018-03-02] MEDS: LEVOTHYROXINE SODIUM 25 MCG TAB PO SCH (05:18)
[2018-03-02 06:58] LABS: AUTOMATED NEUTROPHIL # 8.6 TH/MM3 (1.8-7.7); BASOPHIL # 0.1 TH/MM3 (0-0.2); BASOPHIL % 0.5 % (0.0-2.0); EOSINOPHIL # 0.1 TH/MM3 (0-0.4); EOSINOPHIL % 0.5 % (0.0-4.0); HEMATOCRIT 38.6 % (39.0-51.0); HEMOGLOBIN 12.8 GM/DL (13.0-17.0); LYMPH % 7.5 % (9.0-44.0); LYMPHOCYTE # 0.8 TH/MM3 (1.0-4.8); MEAN CELL VOLUME 90.9 FL (80.0-100.0); MEAN CORPUSCULAR HEMOGLOBIN 30.1 PG (27.0-34.0); MEAN CORPUSCULAR HGB CONC 33.1 % (32.0-36.0); MEAN PLATELET VOLUME 8.8 FL (7.0-11.0); MONO % 9.3 % (0.0-8.0); NEUT % 82.2 % (16.0-70.0); PLATELET COUNT 414 TH/MM3 (150-450); RED BLOOD COUNT 4.25 MIL/MM3 (4.50-5.90); RED CELL DISTRIBUTION WIDTH 14.6 % (11.6-17.2); WHITE BLOOD COUNT 10.5 TH/MM3 (4.0-11.0)
[2018-03-02 07:20] LABS: ALBUMIN 2.9 GM/DL (3.4-5.0); AST (GOT) 16 U/L (15-37); BICARBONATE 26.4 MEQ/L (21.0-32.0); BLOOD UREA NITROGEN 12 MG/DL (7-18); CALCIUM 8.3 MG/DL (8.5-10.1); CHLORIDE 107 MEQ/L (98-107); CREATININE 1.11 MG/DL (0.60-1.30); GLOMERULAR FILTRATION RATE 66 ML/MIN (>89); GLUCOSE,RANDOM 123 MG/DL (74-106); MAGNESIUM 1.9 MG/DL (1.5-2.5); SODIUM (NA) 140 MEQ/L (136-145)
[2018-03-02 07:56] LABS: ALKALINE PHOSPHATASE 54 U/L (45-117); ALT (GPT) 21 U/L (12-78); PHOSPHORUS 3.2 MG/DL (2.5-4.9); TOTAL BILIRUBIN ADULT 0.5 MG/DL (0.2-1.0); TOTAL PROTEIN 6.1 GM/DL (6.4-8.2)
[2018-03-02] MEDS: INSULIN NovoLIN REGULAR SUPPLEMENTAL SCALE SQ SCH ×4 (08:00→21:00)
[2018-03-02] MEDS: PANTOPRAZOLE SOD 40 MG DELAYED RELEASE TAB PO SCH ×2 (08:56→20:02)
[2018-03-02] MEDS: BETHANECHOL CHL 10 MG TAB PO SCH ×3 (08:56→18:49)
[2018-03-02] MEDS: DOCUSATE SODIUM 50 MG/SENNA 8.6 MG TAB PO SCH ×2 (08:56→20:02)
[2018-03-02] MEDS: SODIUM CHLORIDE 0.9% FLUSH 10 ML FLUSH IV FLUSH SCH ×2 (08:59→20:02)
[2018-03-02] MEDS: ARTIFICIAL TEARS OPTH SOLN 15 ML BTL EACH EYE SCH ×3 (09:00→18:00)
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
[2018-03-02] MEDS: BUDESONIDE-FORMOTEROL 160/4.5 MCG INHALER INH SCH ×2 (09:40→20:02)
[2018-03-02] MEDS: ISOPROTERENOL INJ 2 MG in DEXTROSE 5% IN WATER INJ 250 ML IV PRN ×2 (10:39)
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
--- NOTE | 2018-03-02 11:24 | PD.CARD.PN ---
Subjective Subjective Remarks alert in nad Objective Medications Current Medications Medications (Trade) Dose Ordered Sig/Jose De Jesus Route Start Time Stop Time Status Last Admin (Urecholine) 10 mg TID PO 02/27/18 18:00 03/02/18 08:56 (Protonix) 40 mg BID PO 02/27/18 21:00 03/02/18 08:56 (Flomax) 0.4 mg DAILY PO 02/28/18 09:00 Future Hold 02/28/18 09:18 (Symbicort 160-4.5 Mcg Inh) 2 puff BID INH 02/27/18 21:00 03/02/18 09:40 Sodium Chloride 1,000 ml @ 50 mls/hr Q20H IV 02/27/18 15:00 03/01/18 18:28 (NS Flush) 2 ml UNSCH PRN IV FLUSH 02/27/18 15:00 (NS Flush) 2 ml BID IV FLUSH 02/27/18 21:00 03/01/18 20:21 (Tylenol) 650 mg Q6H PRN PO 02/27/18 15:00 02/27/18 20:13 (Morphine Inj) 2 mg Q2H PRN IV PUSH 02/27/18 15:00 (Tears Naturale Opth Soln) 1 drop TID EACH EYE 02/27/18 18:00 03/01/18 18:00 (Zofran Odt) 4 mg Q6H PRN PO 02/27/18 15:15 (Duoneb Neb) 1 ampule Q6HR NEB INH 02/27/18 16:00 03/02/18 09:28 (Albuterol Neb) 2.5 mg Q2HR NEB PRN INH 02/27/18 15:00 ([facility]) 1 Q361D XX 02/27/18 15:00 02/27/18 15:00 (Chlorhexidine 2% Cloth) 3 pack Taper DAILY@04 TOP 02/28/18 04:00 02/24/19 03:59 03/01/18 04:00 (Chlorhexidine 2% Cloth) 3 pack UNSCH PRN TOP 02/27/18 15:00 (Asha-Colace) 1 tab BID PO 02/27/18 21:00 03/02/18 08:56 (Milk Of Magnesia Liq) 30 ml Q12H PRN PO 02/27/18 15:00 (Senokot) 17.2 mg Q12H PRN PO 02/27/18 15:00 (Dulcolax Supp) 10 mg DAILY PRN RECTAL 02/27/18 15:00 (Lactulose Liq) 30 ml DAILY PRN PO 02/27/18 15:00 Clevidipine 50 ml @ 2 mls/hr TITRATE PRN IV 02/27/18 15:00 (Compazine Inj) 5 mg Q4H PRN IV PUSH 02/27/18 15:30 (Phenergan Supp) 25 mg Q6H PRN RECTAL 02/27/18 15:30 (D50w (Vial) Inj) 50 ml UNSCH PRN IV PUSH 02/27/18 15:30 (Glucagon Inj) 1 mg UNSCH PRN OTHER 02/27/18 15:30 (NovoLIN R SUPPLEMENTAL SCALE) 1 ACHS SLIDING SCALE SQ 02/27/18 17:00 02/27/18 20:14 Isoproterenol HCl 2 mg/Dextrose 260 ml @ 7.8 mls/hr TITRATE PRN IV 02/28/18 01:00 03/02/18 10:39 (Synthroid) 25 mcg DAILY@0600 PO 03/01/18 08:45 03/02/18 05:18 ([place] 7.5-325 Mg) 1 tab Q4H PRN PO 03/01/18 10:30 03/02/18 08:59 Vital Signs / I&O Vital Signs Date Time Temp Pulse Resp B/P (MAP) Pulse Ox O2 Delivery O2 Flow Rate FiO2 03/02/18 10:39 77 154/89 03/02/18 10:24 20 03/02/18 09:30 98 21 03/02/18 06:00 70 03/02/18 04:00 98.0 76 22 149/78 (101) 95 03/02/18 04:00 71 03/02/18 02:00 62 03/02/18 00:00 98.2 72 20 155/85 (108) 95 03/02/18 00:00 72 03/01/18 22:00 72 03/01/18 20:00 72 03/01/18 20:00 98.3 72 18 146/83 (104) 95 03/01/18 18:00 81 03/01/18 16:00 99.0 72 17 162/89 (113) 93 03/01/18 14:00 99 03/01/18 12:00 69 03/01/18 12:00 99.0 64 14 148/80 (102) 95 I/O 03/01/18 03/01/18 03/01/18 03/02/18 03/02/18 03/02/18 07:00 15:00 23:00 07:00 15:00 23:00 Intake Total 1000 ml 130 ml 1320 ml 220 ml Output Total 975 ml 1450 ml 380 ml Balance 25 ml 130 ml -130 ml -160 ml Intake Oral 320 ml 220 ml IV Total 1000 ml 130 ml 1000 ml Output Urine Total 975 ml 1450 ml 380 ml # Voids 5 5 # Bowel Movements 0 3 Physical Exam GENERAL: SKIN: Warm and dry. HEAD: Normocephalic. EYES: No scleral icterus. No injection or drainage. NECK: Supple, trachea midline. No JVD or lymphadenopathy. CARDIOVASCULAR: Regular rate and rhythm without murmurs, gallops, or rubs. RESPIRATORY: Breath sounds equal bilaterally. No accessory muscle use. GASTROINTESTINAL: Abdomen soft, non-tender, nondistended. MUSCULOSKELETAL: No cyanosis, or edema. BACK: Nontender without obvious deformity. No CVA tenderness. Laboratory Laboratory Tests Test 03/01/18 12:30 03/02/18 06:22 Lactic Acid Level 1.9 mmol/L White Blood Count 10.5 TH/MM3 Red Blood Count 4.25 MIL/MM3 Hemoglobin 12.8 GM/DL Hematocrit 38.6 % Mean Corpuscular Volume 90.9 FL Mean Corpuscular Hemoglobin 30.1 PG Mean Corpuscular Hemoglobin Concent 33.1 % Red Cell Distribution Width 14.6 % Platelet Count 414 TH/MM3 Mean Platelet Volume 8.8 FL Neutrophils (%) (Auto) 82.2 % Lymphocytes (%) (Auto) 7.5 % Monocytes (%) (Auto) 9.3 % Eosinophils (%) (Auto) 0.5 % Basophils (%) (Auto) 0.5 % Neutrophils # (Auto) 8.6 TH/MM3 Lymphocytes # (Auto) 0.8 TH/MM3 Monocytes # (Auto) 1.0 TH/MM3 Eosinophils # (Auto) 0.1 TH/MM3 Basophils # (Auto) 0.1 TH/MM3 CBC Comment DIFF FINAL Differential Comment Blood Urea Nitrogen 12 MG/DL Creatinine 1.11 MG/DL Random Glucose 123 MG/DL Total Protein 6.1 GM/DL Albumin 2.9 GM/DL Calcium Level 8.3 MG/DL Phosphorus Level 3.2 MG/DL Magnesium Level 1.9 MG/DL Alkaline Phosphatase 54 U/L Aspartate Amino Transf (AST/SGOT) 16 U/L Alanine Aminotransferase (ALT/SGPT) 21 U/L Total Bilirubin 0.5 MG/DL Sodium Level 140 MEQ/L Potassium Level 4.0 MEQ/L Chloride Level 107 MEQ/L Carbon Dioxide Level 26.4 MEQ/L Anion Gap 7 MEQ/L Estimat Glomerular Filtration Rate 66 ML/MIN Assessment and Plan Problem List: (1) Asystole ICD Codes: I46.9 - Cardiac arrest, cause unspecified (2) Fall ICD Codes: W19.XXXA - Unspecified fall, initial encounter Status: Acute (3) Traumatic intracranial subdural hematoma with brief loss ofconsciousness Status: Acute Assessment and Plan 1.) Asystole - stable on isopril, Dr Campbell plans ppm placement 03/05/18 Nick Bennett MD March 02, 2018 11:24
[2018-03-02] MEDS: SODIUM CHLOR 0.9% 1000 ML INJ 1,000 ML IV SCH (18:49)
[2018-03-03] VITALS (14 sets, daily range): BP systolic 157–173; BP diastolic 81–89; PULSE 71–90; RESP 16–17; TEMP 98.5–99; O2SAT 94–96
[2018-03-03] MEDS: ACETAMINOPHEN/HYDROcodone 325 MG/7.5 MG TAB PO PRN ×5 (03:18→20:06)
[2018-03-03] MEDS: RESP: ALBUTEROL 2.5 MG/IPRATROPIUM 0.5 MG NEB (SCH) INH ×2 (04:00→09:39)
[2018-03-03] MEDS: CHLORHEXIDINE GLUCONATE 2 % 1 PACK (2 CLOTHS) TOP SCH (04:00)
[2018-03-03 05:42] LABS: BICARBONATE 26.4 MEQ/L (21.0-32.0); CALCIUM 8.2 MG/DL (8.5-10.1); CREATININE 1.1 MG/DL (0.60-1.30)
[2018-03-03] MEDS: LEVOTHYROXINE SODIUM 25 MCG TAB PO SCH (05:58)
[2018-03-03] MEDS: DOCUSATE SODIUM 50 MG/SENNA 8.6 MG TAB PO SCH ×2 (08:04→20:05)
[2018-03-03] MEDS: PANTOPRAZOLE SOD 40 MG DELAYED RELEASE TAB PO SCH ×2 (08:05→20:06)
[2018-03-03] MEDS: BETHANECHOL CHL 10 MG TAB PO SCH ×3 (08:05→18:17)
[2018-03-03] MEDS: ARTIFICIAL TEARS OPTH SOLN 15 ML BTL EACH EYE SCH ×3 (08:05→18:17)
[2018-03-03] MEDS: SODIUM CHLORIDE 0.9% FLUSH 10 ML FLUSH IV FLUSH SCH ×2 (08:05→20:06)
[2018-03-03] MEDS: BUDESONIDE-FORMOTEROL 160/4.5 MCG INHALER INH SCH ×2 (08:06→20:06)
[2018-03-03] MEDS: INSULIN NovoLIN REGULAR SUPPLEMENTAL SCALE SQ SCH ×4 (08:56→20:06)
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
--- NOTE | 2018-03-03 10:04 | PD.CARD.PN ---
Subjective Subjective Remarks alert in nad Objective Medications Current Medications Medications (Trade) Dose Ordered Sig/Jose De Jesus Route Start Time Stop Time Status Last Admin (Urecholine) 10 mg TID PO 02/27/18 18:00 03/03/18 08:05 (Protonix) 40 mg BID PO 02/27/18 21:00 03/03/18 08:05 (Flomax) 0.4 mg DAILY PO 02/28/18 09:00 Future Hold 02/28/18 09:18 (Symbicort 160-4.5 Mcg Inh) 2 puff BID INH 02/27/18 21:00 03/03/18 08:06 Sodium Chloride 1,000 ml @ 50 mls/hr Q20H IV 02/27/18 15:00 03/02/18 18:49 (NS Flush) 2 ml UNSCH PRN IV FLUSH 02/27/18 15:00 (NS Flush) 2 ml BID IV FLUSH 02/27/18 21:00 03/02/18 20:02 (Tylenol) 650 mg Q6H PRN PO 02/27/18 15:00 02/27/18 20:13 (Morphine Inj) 2 mg Q2H PRN IV PUSH 02/27/18 15:00 (Tears Naturale Opth Soln) 1 drop TID EACH EYE 02/27/18 18:00 03/01/18 18:00 (Zofran Odt) 4 mg Q6H PRN PO 02/27/18 15:15 (Duoneb Neb) 1 ampule Q6HR NEB INH 02/27/18 16:00 03/03/18 09:39 (Albuterol Neb) 2.5 mg Q2HR NEB PRN INH 02/27/18 15:00 ([facility] [place] [facility] 1 Q361D XX 02/27/18 15:00 02/27/18 15:00 (Chlorhexidine 2% Cloth) 3 pack Taper DAILY@04 TOP 02/28/18 04:00 02/24/19 03:59 03/01/18 04:00 (Chlorhexidine 2% Cloth) 3 pack UNSCH PRN TOP 02/27/18 15:00 (Asha-Colace) 1 tab BID PO 02/27/18 21:00 03/03/18 08:04 (Milk Of Magnesia Liq) 30 ml Q12H PRN PO 02/27/18 15:00 (Senokot) 17.2 mg Q12H PRN PO 02/27/18 15:00 (Dulcolax Supp) 10 mg DAILY PRN RECTAL 02/27/18 15:00 (Lactulose Liq) 30 ml DAILY PRN PO 02/27/18 15:00 Clevidipine 50 ml @ 2 mls/hr TITRATE PRN IV 02/27/18 15:00 (Compazine Inj) 5 mg Q4H PRN IV PUSH 02/27/18 15:30 (Phenergan Supp) 25 mg Q6H PRN RECTAL 02/27/18 15:30 (D50w (Vial) Inj) 50 ml UNSCH PRN IV PUSH 02/27/18 15:30 (Glucagon Inj) 1 mg UNSCH PRN OTHER 02/27/18 15:30 (NovoLIN R SUPPLEMENTAL SCALE) 1 ACHS SLIDING SCALE SQ 02/27/18 17:00 03/03/18 08:56 Isoproterenol HCl 2 mg/Dextrose 260 ml @ 7.8 mls/hr TITRATE PRN IV 02/28/18 01:00 03/02/18 10:39 (Synthroid) 25 mcg DAILY@0600 PO 03/01/18 08:45 03/03/18 05:58 (Anderson 7.5-325 Mg) 1 tab Q4H PRN PO 03/01/18 10:30 03/03/18 08:04 Vital Signs / I&O Vital Signs Date Time Temp Pulse Resp B/P (MAP) Pulse Ox O2 Delivery O2 Flow Rate FiO2 03/03/18 09:54 19 03/03/18 09:40 95 21 03/03/18 06:00 86 03/03/18 04:00 98.5 82 16 164/86 (112) 95 03/03/18 04:00 82 03/03/18 02:00 80 03/03/18 00:00 98.6 77 16 167/88 (114) 94 03/03/18 00:00 81 03/02/18 22:00 75 03/02/18 20:00 99.0 90 20 162/93 (116) 95 03/02/18 20:00 100 03/02/18 19:59 94 03/02/18 18:00 97 03/02/18 16:00 98.6 100 19 152/85 (107) 98 03/02/18 16:00 100 03/02/18 14:00 122 03/02/18 12:00 98.4 106 13 151/88 (109) 91 03/02/18 12:00 106 03/02/18 10:39 77 154/89 I/O 03/02/18 03/02/18 03/02/18 03/03/18 03/03/18 03/03/18 07:00 15:00 23:00 07:00 15:00 23:00 Intake Total 220 ml 1640 ml 120 ml Output Total 380 ml 550 ml 650 ml Balance -160 ml 1090 ml -530 ml Intake Oral 220 ml 400 ml 120 ml Oral Supplement 240 ml IV Total 1000 ml Output Urine Total 380 ml 550 ml 650 ml # Bowel Movements 1 Physical Exam GENERAL: SKIN: Warm and dry. HEAD: Normocephalic. EYES: No scleral icterus. No injection or drainage. NECK: Supple, trachea midline. No JVD or lymphadenopathy. CARDIOVASCULAR: Regular rate and rhythm without murmurs, gallops, or rubs. RESPIRATORY: Breath sounds equal bilaterally. No accessory muscle use. GASTROINTESTINAL: Abdomen soft, non-tender, nondistended. MUSCULOSKELETAL: No cyanosis, or edema. BACK: Nontender without obvious deformity. No CVA tenderness. Laboratory Laboratory Tests Test 03/03/18 03:33 Blood Urea Nitrogen 13 MG/DL Creatinine 1.10 MG/DL Random Glucose 116 MG/DL Calcium Level 8.2 MG/DL Sodium Level 140 MEQ/L Potassium Level 3.8 MEQ/L Chloride Level 103 MEQ/L Carbon Dioxide Level 26.4 MEQ/L Anion Gap 11 MEQ/L Estimat Glomerular Filtration Rate 67 ML/MIN Assessment and Plan Problem List: (1) Asystole ICD Codes: I46.9 - Cardiac arrest, cause unspecified (2) Fall ICD Codes: W19.XXXA - Unspecified fall, initial encounter Status: Acute (3) Traumatic intracranial subdural hematoma with brief loss ofconsciousness Status: Acute Assessment and Plan 1.) Asystole - stable on isopril, Dr Campbell plans ppm placement 03/05/18; d/w Dr Andersen 03/03/18 Nick Bennett MD March 03, 2018 10:04
[2018-03-03] MEDS: ISOPROTERENOL INJ 2 MG in DEXTROSE 5% IN WATER INJ 250 ML IV PRN ×2 (10:30)
[2018-03-03] MEDS: SODIUM CHLOR 0.9% 1000 ML INJ 1,000 ML IV SCH (16:28)
[2018-03-03] MEDS: ONDANSETRON ODT 4 MG TAB PO PRN (21:04)
[2018-03-04] VITALS (13 sets, daily range): BP systolic 149–188; BP diastolic 75–99; PULSE 68–86; RESP 12–22; TEMP 98.1–99.1; O2SAT 93–95
[2018-03-04] MEDS: ACETAMINOPHEN/HYDROcodone 325 MG/7.5 MG TAB PO PRN ×4 (00:20→12:16)
[2018-03-04] MEDS: CHLORHEXIDINE GLUCONATE 2 % 1 PACK (2 CLOTHS) TOP SCH (02:01)
[2018-03-04] MEDS: LEVOTHYROXINE SODIUM 25 MCG TAB PO SCH (05:05)
[2018-03-04] MEDS: SODIUM CHLOR 0.9% 1000 ML INJ 1,000 ML IV SCH (06:35)
[2018-03-04] MEDS: INSULIN NovoLIN REGULAR SUPPLEMENTAL SCALE SQ SCH ×4 (08:00→20:52)
[2018-03-04] MEDS: DOCUSATE SODIUM 50 MG/SENNA 8.6 MG TAB PO SCH ×2 (08:02→20:23)
[2018-03-04] MEDS: BETHANECHOL CHL 10 MG TAB PO SCH ×3 (08:02→17:00)
[2018-03-04] MEDS: BUDESONIDE-FORMOTEROL 160/4.5 MCG INHALER INH SCH ×2 (08:02→20:52)
[2018-03-04] MEDS: PANTOPRAZOLE SOD 40 MG DELAYED RELEASE TAB PO SCH ×2 (08:02→20:23)
[2018-03-04] MEDS: ARTIFICIAL TEARS OPTH SOLN 15 ML BTL EACH EYE SCH ×3 (08:03→18:00)
[2018-03-04] MEDS: SODIUM CHLORIDE 0.9% FLUSH 10 ML FLUSH IV FLUSH SCH ×2 (08:04→20:23)
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
[2018-03-04] MEDS ORDERED: hydrALAZINE HCL 20 MG/ML VIAL IV PUSH PRN (08:45)
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
[2018-03-04] MEDS: MORPHINE SULFATE 4 MG/ML INJ IV PUSH PRN (13:40)
--- NOTE | 2018-03-04 16:41 | PD.CARD.PN ---
Subjective Subjective Remarks alert in nad Objective Medications Current Medications Medications (Trade) Dose Ordered Sig/Jose De Jesus Route Start Time Stop Time Status Last Admin (Urecholine) 10 mg TID PO 02/27/18 18:00 03/04/18 12:17 (Protonix) 40 mg BID PO 02/27/18 21:00 03/04/18 08:02 (Flomax) 0.4 mg DAILY PO 02/28/18 09:00 Future Hold 02/28/18 09:18 (Symbicort 160-4.5 Mcg Inh) 2 puff BID INH 02/27/18 21:00 03/04/18 08:02 Sodium Chloride 1,000 ml @ 30 mls/hr Q24H IV 02/27/18 15:00 03/04/18 06:35 (NS Flush) 2 ml UNSCH PRN IV FLUSH 02/27/18 15:00 (NS Flush) 2 ml BID IV FLUSH 02/27/18 21:00 03/03/18 20:06 (Tylenol) 650 mg Q6H PRN PO 02/27/18 15:00 02/27/18 20:13 (Morphine Inj) 2 mg Q2H PRN IV PUSH 02/27/18 15:00 03/04/18 13:40 (Tears Naturale Opth Soln) 1 drop TID EACH EYE 02/27/18 18:00 03/03/18 18:17 (Zofran Odt) 4 mg Q6H PRN PO 02/27/18 15:15 03/03/18 21:04 (Albuterol Neb) 2.5 mg Q2HR NEB PRN INH 02/27/18 15:00 ([facility] [place] [facility]) 1 Q361D XX 02/27/18 15:00 02/27/18 15:00 (Chlorhexidine 2% Cloth) 3 pack Taper DAILY@04 TOP 02/28/18 04:00 02/24/19 03:59 03/01/18 04:00 (Chlorhexidine 2% Cloth) 3 pack UNSCH PRN TOP 02/27/18 15:00 (Asha-Colace) 1 tab BID PO 02/27/18 21:00 03/04/18 08:02 (Milk Of Magnesia Liq) 30 ml Q12H PRN PO 02/27/18 15:00 (Senokot) 17.2 mg Q12H PRN PO 02/27/18 15:00 (Dulcolax Supp) 10 mg DAILY PRN RECTAL 02/27/18 15:00 (Lactulose Liq) 30 ml DAILY PRN PO 02/27/18 15:00 (Compazine Inj) 5 mg Q4H PRN IV PUSH 02/27/18 15:30 (Phenergan Supp) 25 mg Q6H PRN RECTAL 02/27/18 15:30 (D50w (Vial) Inj) 50 ml UNSCH PRN IV PUSH 02/27/18 15:30 (Glucagon Inj) 1 mg UNSCH PRN OTHER 02/27/18 15:30 (NovoLIN R SUPPLEMENTAL SCALE) 1 ACHS SLIDING SCALE SQ 02/27/18 17:00 03/03/18 08:56 Isoproterenol HCl 2 mg/Dextrose 260 ml @ 7.8 mls/hr TITRATE PRN IV 02/28/18 01:00 03/03/18 10:30 (Synthroid) 25 mcg DAILY@0600 PO 03/01/18 08:45 03/04/18 05:05 (Apresoline Inj) 20 mg Q4H PRN IV PUSH 03/04/18 08:45 (Percocet 7.5-325 Mg) 1 tab Q4H PRN PO 03/04/18 14:00 Vital Signs / I&O Vital Signs Date Time Temp Pulse Resp B/P (MAP) Pulse Ox O2 Delivery O2 Flow Rate FiO2 03/04/18 14:00 83 03/04/18 14:00 15 03/04/18 13:17 18 03/04/18 12:00 98.6 86 18 160/91 (114) 94 03/04/18 12:00 73 03/04/18 10:00 82 03/04/18 08:00 72 03/04/18 08:00 98.1 72 22 149/87 (107) 95 03/04/18 06:00 71 03/04/18 04:00 68 03/04/18 04:00 98.6 73 14 151/75 (100) 93 03/04/18 02:00 70 03/04/18 00:00 70 03/04/18 00:00 99.1 70 16 156/92 (113) 94 03/03/18 22:00 74 03/03/18 20:33 95 03/03/18 20:00 98.6 72 16 173/89 (117) 96 03/03/18 20:00 78 03/03/18 18:00 74 I/O 03/03/18 03/03/18 03/03/18 03/04/18 03/04/18 03/04/18 07:00 15:00 23:00 07:00 15:00 23:00 Intake Total 120 ml 260 ml 1240 ml 120 ml Output Total 650 ml 700 ml 550 ml Balance -530 ml 260 ml 540 ml -430 ml Intake Oral 120 ml 120 ml Oral Supplement 240 ml IV Total 260 ml 1000 ml Output Urine Total 650 ml 700 ml 550 ml # Voids 4 # Bowel Movements 1 1 Physical Exam GENERAL: SKIN: Warm and dry. HEAD: Normocephalic. EYES: No scleral icterus. No injection or drainage. NECK: Supple, trachea midline. No JVD or lymphadenopathy. CARDIOVASCULAR: Regular rate and rhythm without murmurs, gallops, or rubs. RESPIRATORY: Breath sounds equal bilaterally. No accessory muscle use. GASTROINTESTINAL: Abdomen soft, non-tender, nondistended. MUSCULOSKELETAL: No cyanosis, or edema. BACK: Nontender without obvious deformity. No CVA tenderness. Imaging GENERAL: SKIN: Warm and dry. HEAD: Normocephalic. EYES: No scleral icterus. No injection or drainage. NECK: Supple, trachea midline. No JVD or lymphadenopathy. CARDIOVASCULAR: Regular rate and rhythm without murmurs, gallops, or rubs. RESPIRATORY: Breath sounds equal bilaterally. No accessory muscle use. GASTROINTESTINAL: Abdomen soft, non-tender, nondistended. MUSCULOSKELETAL: No cyanosis, or edema. BACK: Nontender without obvious deformity. No CVA tenderness. Assessment and Plan Problem List: (1) Asystole ICD Codes: I46.9 - Cardiac arrest, cause unspecified (2) Fall ICD Codes: W19.XXXA - Unspecified fall, initial encounter Status: Acute (3) Traumatic intracranial subdural hematoma with brief loss ofconsciousness Status: Acute Assessment and Plan 1.) Asystole - stable on isopril, Dr Campbell plans ppm placement 03/05/18; d/w Dr Andersen 03/03/18 Nick Bennett MD March 04, 2018 16:41
[2018-03-04] MEDS: oxyCODONE/ACETAMINOPHEN 7.5 MG/325 MG TAB PO PRN ×2 (16:59→21:08)
--- NOTE | 2018-03-04 18:11 | ECHRPT ---
Indication: HEART FAILURE CONCLUSIONS Normal left ventricular size. Mild concentric left ventricular hypertrophy. The left ventricular systolic function is grossly normal on limited imaging. EF @ 55% Trace mitral valve regurgitation. Trace aortic valve regurgitation. There is trace tricuspid valve regurgitation. The estimated pulmonary arterial pressure is 34.6 mmHg. BP: 148 / 80 HR: 64 Rhythm: Sinus MEASUREMENTS (Male / Female) Normal Values Technical Quality:Fair 2D ECHO LV Diastolic Diameter PLAX 5.6 cm 4.2 - 5.9 / 3.9 - 5.3 cm LV Systolic Diameter PLAX 3.5 cm IVS Diastolic Thickness 1.2 cm 0.6 - 1.0 / 0.6 - 0.9 cm LVPW Diastolic Thickness 1.2 cm 0.6 - 1.0 / 0.6 - 0.9 cm LV Relative Wall Thickness 0.4 RV Internal Dim ED PLAX 1.8 cm LVOT Diameter 2.5 cm Aortic Root Diameter 3.8 cm LA Systolic Diameter LX 3.1 cm 3.0 - 4.0 / 2.7 - 3.8 cm M-MODE AV Cusp Separation MM 1.9 cm DOPPLER AV Peak Velocity 139.0 cm/s AV Peak Gradient 7.7 mmHg AV Mean Gradient 4.0 mmHg AV Velocity Time Integral 23.6 cm LVOT Peak Velocity 100.0 cm/s LVOT Peak Gradient 4.0 mmHg LVOT Velocity Time Integral 18.2 cm LVOT Cardiac Index 3052.4 cm/minm AV Area Cont Eq vti 3.8 cm AV Area Cont Eq pk 3.5 cm Mitral E Point Velocity 94.0 cm/s Mitral A Point Velocity 147.0 cm/s Mitral E to A Ratio 0.6 LV E' Lateral Velocity 8.7 cm/s Mitral E to LV E' Lateral Ratio 10.8 LV E' Septal Velocity 13.4 cm/s Mitral E to LV E' Septal Ratio 7.0 TR Peak Velocity 248.0 cm/s TR Peak Gradient 24.6 mmHg Right Atrial Pressure 10.0 mmHg Pulmonary Artery Systolic Pressu 34.6 mmHg Right Ventricular Systolic Press 34.6 mmHg PV Peak Velocity 86.5 cm/s PV Peak Gradient 3.0 mmHg FINDINGS LEFT VENTRICLE Normal left ventricular size. Mild concentric left ventricular hypertrophy. The left ventricular systolic function is grossly normal on limited imaging. RIGHT VENTRICLE Normal right ventricular size and systolic function. LEFT ATRIUM The left atrial size is normal. RIGHT ATRIUM The right atrial size is normal. ATRIAL SEPTUM No atrial level shunt is demonstrated by color flow Doppler interrogation. AORTA The aortic root and proximal ascending aorta are normal in size on limited imaging. MITRAL VALVE Trace mitral valve regurgitation. AORTIC VALVE Trace aortic valve regurgitation. Trileaflet aortic valve. TRICUSPID VALVE There is trace tricuspid valve regurgitation. The estimated pulmonary arterial pressure is 34.6 mmHg. PULMONARY VALVE No pulmonary valve regurgitation or stenosis. VESSELS The inferior vena cava is normal in size. PERICARDIUM No pericardial effusion. Nick Bennett MD, FACC, FSCAI (Electronically Signed) Final Date:04 Mar 2018 18:11
[2018-03-04] MEDS: hydrALAZINE HCL 10 MG TAB PO PRN (21:07)
[2018-03-04] MEDS: ONDANSETRON ODT 4 MG TAB PO PRN (21:08)
[2018-03-05] VITALS (13 sets, daily range): BP systolic 156–170; BP diastolic 81–94; PULSE 66–90; RESP 15–20; TEMP 97.9–99.2; O2SAT 93–100
--- NOTE | 2018-03-05 00:57 | RADRPT ---
EXAM DATE: 03/05/2018 12:50 AM EDT AGE/SEX: 67 years / Male INDICATIONS: Follow up subdurals. CLINICAL DATA: This is the patient's subsequent encounter. Patient reports that signs and symptoms h ave been present for 3 days and indicates a pain score of 0/10. MEDICAL/SURGICAL HISTORY: Cardiovascular disease. Hypertension. Chronic obstructive pulmonary dis ease. . RADIATION DOSE: 56.13 CTDI (mGy) COMPARISON: [facility] [place], CT BRAIN W/O CONTRAST, 02/28/2018. . TECHNIQUE: CT of the head without contrast. Using automated exposure control and adjustment of the mA and/or kV according to patient size, radiation dose was kept as low as reasonably achievable to ob tain optimal diagnostic quality images. FINDINGS: Subdural hematomas in bilateral frontal lobes are evolving and less dense as compared to the prior ex amination with no change in subdural hematoma in the anterior temporal middle cranial fossa. There is no mass effect. Skull fractures are again seen and not changed. Area of lucency in the right anterio r parietal lobe is stable not changed. CONCLUSION: 1. Evolving bilateral frontal subdural hematomas and no change in left anterior temporal middle cran ial fossa subdural hematoma. 2. No mass effect. Electronically signed by: Atilio Mccarthy MD 03/05/2018 12:56 AM EDT
[2018-03-05] MEDS: MORPHINE SULFATE 4 MG/ML INJ IV PUSH PRN ×5 (00:59→20:27)
[2018-03-05] MEDS: CHLORHEXIDINE GLUCONATE 2 % 1 PACK (2 CLOTHS) TOP SCH (04:00)
[2018-03-05] MEDS: LEVOTHYROXINE SODIUM 25 MCG TAB PO SCH (05:00)
[2018-03-05 05:44] LABS: AUTOMATED NEUTROPHIL # 7.2 TH/MM3 (1.8-7.7); BASOPHIL % 0.5 % (0.0-2.0); EOSINOPHIL # 0.1 TH/MM3 (0-0.4); EOSINOPHIL % 1.3 % (0.0-4.0); HEMATOCRIT 39.8 % (39.0-51.0); HEMOGLOBIN 13.6 GM/DL (13.0-17.0); LYMPH % 7.3 % (9.0-44.0); LYMPHOCYTE # 0.6 TH/MM3 (1.0-4.8); MEAN CELL VOLUME 90.1 FL (80.0-100.0); MEAN CORPUSCULAR HEMOGLOBIN 30.7 PG (27.0-34.0); MEAN CORPUSCULAR HGB CONC 34.1 % (32.0-36.0); MEAN PLATELET VOLUME 8.1 FL (7.0-11.0); MONO % 9.5 % (0.0-8.0); MONOCYTE # 0.8 TH/MM3 (0-0.9); NEUT % 81.4 % (16.0-70.0); PLATELET COUNT 434 TH/MM3 (150-450); RED BLOOD COUNT 4.41 MIL/MM3 (4.50-5.90); WHITE BLOOD COUNT 8.9 TH/MM3 (4.0-11.0)
[2018-03-05 05:46] LABS: INTERNATIONAL NORMALIZED RATIO 1.1 RATIO; PROTHROMBIN TIME - PATIENT 11.4 SEC (9.8-11.6)
[2018-03-05 06:05] LABS: AST (GOT) 19 U/L (15-37); BICARBONATE 29.9 MEQ/L (21.0-32.0); BLOOD UREA NITROGEN 17 MG/DL (7-18); CALCIUM 8.4 MG/DL (8.5-10.1); CHLORIDE 98 MEQ/L (98-107); CREATININE 0.96 MG/DL (0.60-1.30); GLOMERULAR FILTRATION RATE 78 ML/MIN (>89); GLUCOSE,RANDOM 112 MG/DL (74-106); MAGNESIUM 1.8 MG/DL (1.5-2.5); SODIUM (NA) 134 MEQ/L (136-145)
[2018-03-05 06:06] LABS: ALT (GPT) 29 U/L (12-78)
[2018-03-05 06:08] LABS: ALKALINE PHOSPHATASE 63 U/L (45-117); TOTAL BILIRUBIN ADULT 0.5 MG/DL (0.2-1.0); TOTAL PROTEIN 6.3 GM/DL (6.4-8.2)
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
[2018-03-05] MEDS: INSULIN NovoLIN REGULAR SUPPLEMENTAL SCALE SQ SCH ×4 (08:00→21:00)
[2018-03-05] MEDS: PANTOPRAZOLE SOD 40 MG DELAYED RELEASE TAB PO SCH ×2 (08:18→20:27)
[2018-03-05] MEDS: SODIUM CHLOR 0.9% 1000 ML INJ 1,000 ML IV SCH (08:18)
[2018-03-05] MEDS: SODIUM CHLORIDE 0.9% FLUSH 10 ML FLUSH IV FLUSH SCH ×2 (08:18→20:27)
[2018-03-05] MEDS: BETHANECHOL CHL 10 MG TAB PO SCH ×3 (08:18→18:00)
[2018-03-05] MEDS: BUDESONIDE-FORMOTEROL 160/4.5 MCG INHALER INH SCH ×2 (08:18→20:27)
[2018-03-05] MEDS: ARTIFICIAL TEARS OPTH SOLN 15 ML BTL EACH EYE SCH ×3 (08:18→18:21)
[2018-03-05] MEDS: hydrALAZINE HCL 10 MG TAB PO PRN ×2 (08:19→20:27)
[2018-03-05] MEDS: ONDANSETRON ODT 4 MG TAB PO PRN (08:19)
[2018-03-05] MEDS: DOCUSATE SODIUM 50 MG/SENNA 8.6 MG TAB PO SCH ×2 (08:29→20:27)
[2018-03-05] MEDS: ISOPROTERENOL INJ 2 MG in DEXTROSE 5% IN WATER INJ 250 ML IV PRN ×2 (10:23)
[2018-03-05] MEDS ORDERED: LIDOCAINE HCL 1% PF 5 ML SYRINGE OTHER ONE (12:00)
[2018-03-05] MEDS ORDERED: PROPOFOL 200 MG/20 ML AMP IV ONE (12:00)
[2018-03-05] MEDS ORDERED: PHENYLEPH/NS 1000 MCG/10 ML SYR IV ONE (12:00)
[2018-03-05] MEDS ORDERED: ONDANSETRON HCL 4 MG/2 ML VIAL IV ONE (12:00)
[2018-03-05] MEDS ORDERED: DEXAMETHASONE SOD PHOS 4 MG/ML VIAL IV ONE (12:00)
[2018-03-05] MEDS ORDERED: ePHEDrine/NS 25 MG/5 ML SYRINGE IV ONE (12:00)
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
--- NOTE | 2018-03-05 14:17 | PD.CARD.PN ---
Subjective Subjective Remarks alert in nad Objective Medications Current Medications Medications (Trade) Dose Ordered Sig/Jose De Jesus Route Start Time Stop Time Status Last Admin (Urecholine) 10 mg TID PO 02/27/18 18:00 03/05/18 13:10 (Protonix) 40 mg BID PO 02/27/18 21:00 03/05/18 08:18 (Flomax) 0.4 mg DAILY PO 02/28/18 09:00 Future Hold 02/28/18 09:18 (Symbicort 160-4.5 Mcg Inh) 2 puff BID INH 02/27/18 21:00 03/05/18 08:18 Sodium Chloride 1,000 ml @ 30 mls/hr Q24H IV 02/27/18 15:00 03/05/18 08:18 (NS Flush) 2 ml UNSCH PRN IV FLUSH 02/27/18 15:00 (NS Flush) 2 ml BID IV FLUSH 02/27/18 21:00 03/05/18 08:18 (Tylenol) 650 mg Q6H PRN PO 02/27/18 15:00 02/27/18 20:13 (Morphine Inj) 2 mg Q2H PRN IV PUSH 02/27/18 15:00 03/05/18 13:10 (Tears Naturale Opth Soln) 1 drop TID EACH EYE 02/27/18 18:00 03/05/18 13:00 (Zofran Odt) 4 mg Q6H PRN PO 02/27/18 15:15 03/05/18 08:19 (Albuterol Neb) 2.5 mg Q2HR NEB PRN INH 02/27/18 15:00 ([facility] Nursing Information) 1 Q361D XX 02/27/18 15:00 02/27/18 15:00 (Chlorhexidine 2% Cloth) Taper DAILY@04 TOP 02/28/18 04:00 02/24/19 03:59 03/05/18 04:00 (Chlorhexidine 2% Cloth) 3 pack UNSCH PRN TOP 02/27/18 15:00 (Asha-Colace) 1 tab BID PO 02/27/18 21:00 03/04/18 20:23 (Milk Of Magnesia Liq) 30 ml Q12H PRN PO 02/27/18 15:00 (Senokot) 17.2 mg Q12H PRN PO 02/27/18 15:00 (Dulcolax Supp) 10 mg DAILY PRN RECTAL 02/27/18 15:00 (Lactulose Liq) 30 ml DAILY PRN PO 02/27/18 15:00 (Compazine Inj) 5 mg Q4H PRN IV PUSH 02/27/18 15:30 (Phenergan Supp) 25 mg Q6H PRN RECTAL 02/27/18 15:30 (D50w (Vial) Inj) 50 ml UNSCH PRN IV PUSH 02/27/18 15:30 (Glucagon Inj) 1 mg UNSCH PRN OTHER 02/27/18 15:30 (NovoLIN R SUPPLEMENTAL SCALE) 1 ACHS SLIDING SCALE SQ 02/27/18 17:00 03/03/18 08:56 Isoproterenol HCl 2 mg/Dextrose 260 ml @ 7.8 mls/hr TITRATE PRN IV 02/28/18 01:00 03/05/18 10:23 (Synthroid) 25 mcg DAILY@0600 PO 03/01/18 08:45 03/05/18 05:00 (Apresoline Inj) 20 mg Q4H PRN IV PUSH 03/04/18 08:45 (Percocet 7.5-325 Mg) 1 tab Q4H PRN PO 03/04/18 14:00 03/04/18 21:08 (Apresoline) 20 mg Q4H PRN PO 03/04/18 21:00 03/05/18 08:19 Vital Signs / I&O Vital Signs Date Time Temp Pulse Resp B/P (MAP) Pulse Ox O2 Delivery O2 Flow Rate FiO2 03/05/18 12:00 98.2 78 20 156/81 (106) 93 03/05/18 12:00 68 03/05/18 10:23 67 155/90 03/05/18 10:00 66 03/05/18 08:00 97.9 66 15 170/91 (117) 95 03/05/18 08:00 72 03/05/18 06:00 78 03/05/18 04:00 78 03/05/18 04:00 99.2 78 16 170/89 (116) 94 03/05/18 02:00 66 03/05/18 00:00 98.6 72 15 160/86 (110) 94 03/05/18 00:00 72 03/04/18 22:00 70 03/04/18 20:00 98.7 74 20 188/99 (128) 94 03/04/18 20:00 74 03/04/18 19:06 95 21 03/04/18 18:00 74 03/04/18 16:00 98.8 70 12 149/83 (105) 94 03/04/18 16:00 70 I/O 03/04/18 03/04/18 03/04/18 03/05/18 03/05/18 03/05/18 07:00 15:00 23:00 07:00 15:00 23:00 Intake Total 120 ml 480 ml 0 ml 750 ml Output Total 550 ml 675 ml 1075 ml Balance -430 ml -195 ml -1075 ml 750 ml Intake Oral 120 ml 0 ml Oral Supplement 480 ml IV Total 750 ml Output Urine Total 550 ml 675 ml 1075 ml # Voids 4 6 # Bowel Movements 1 1 Physical Exam GENERAL: SKIN: Warm and dry. HEAD: Normocephalic. EYES: No scleral icterus. No injection or drainage. NECK: Supple, trachea midline. No JVD or lymphadenopathy. CARDIOVASCULAR: Regular rate and rhythm without murmurs, gallops, or rubs. RESPIRATORY: Breath sounds equal bilaterally. No accessory muscle use. GASTROINTESTINAL: Abdomen soft, non-tender, nondistended. MUSCULOSKELETAL: No cyanosis, or edema. BACK: Nontender without obvious deformity. No CVA tenderness. Laboratory Laboratory Tests Test 03/05/18 04:56 White Blood Count 8.9 TH/MM3 Red Blood Count 4.41 MIL/MM3 Hemoglobin 13.6 GM/DL Hematocrit 39.8 % Mean Corpuscular Volume 90.1 FL Mean Corpuscular Hemoglobin 30.7 PG Mean Corpuscular Hemoglobin Concent 34.1 % Red Cell Distribution Width 14.0 % Platelet Count 434 TH/MM3 Mean Platelet Volume 8.1 FL Neutrophils (%) (Auto) 81.4 % Lymphocytes (%) (Auto) 7.3 % Monocytes (%) (Auto) 9.5 % Eosinophils (%) (Auto) 1.3 % Basophils (%) (Auto) 0.5 % Neutrophils # (Auto) 7.2 TH/MM3 Lymphocytes # (Auto) 0.6 TH/MM3 Monocytes # (Auto) 0.8 TH/MM3 Eosinophils # (Auto) 0.1 TH/MM3 Basophils # (Auto) 0.0 TH/MM3 CBC Comment DIFF FINAL Differential Comment Prothrombin Time 11.4 SEC Prothromb Time International Ratio 1.1 RATIO Blood Urea Nitrogen 17 MG/DL Creatinine 0.96 MG/DL Random Glucose 112 MG/DL Total Protein 6.3 GM/DL Albumin 3.0 GM/DL Calcium Level 8.4 MG/DL Magnesium Level 1.8 MG/DL Alkaline Phosphatase 63 U/L Aspartate Amino Transf (AST/SGOT) 19 U/L Alanine Aminotransferase (ALT/SGPT) 29 U/L Total Bilirubin 0.5 MG/DL Sodium Level 134 MEQ/L Potassium Level 3.8 MEQ/L Chloride Level 98 MEQ/L Carbon Dioxide Level 29.9 MEQ/L Anion Gap 6 MEQ/L Estimat Glomerular Filtration Rate 78 ML/MIN Imaging Last [address] 03/05/18 0000 Signed Impressions: CONCLUSION: 1. Evolving bilateral frontal subdural hematomas and no change in left anterio r temporal middle cranial fossa subdural hematoma. 2. No mass effect. Assessment and Plan Problem List: (1) Asystole ICD Codes: I46.9 - Cardiac arrest, cause unspecified (2) Fall ICD Codes: W19.XXXA - Unspecified fall, initial encounter Status: Acute (3) Traumatic intracranial subdural hematoma with brief loss ofconsciousness Status: Acute Assessment and Plan 1.) Asystole - stable on isopril, Dr Campbell plans ppm placement 03/05/18; d/w Dr Andersen 03/03/18 Nick Bennett MD March 05, 2018 14:17
--- NOTE | 2018-03-05 17:08 | PD.CARD ---
DUAL PPM IMPLANTATION PROCEDURE DATE: March 05, 2018 DUAL PPM IMPLANTATION PROCEDURE: Dual chamber permanent pacemaker implantation. INDICATIONS FOR PROCEDURE: Mr. Cha is a 67 -year-old male with syncopal episodes, head trauma, asystole over 8 sec,severe bradycardia, on isuprel referred for pacer insertion. The risks, the nature and the benefit of the procedure were clearly stated to him . The risks include pneumothorax, cardiac perforation, stroke and even . He understood and agreed to proceed. PROCEDURE After written informed consent was obtained, the patient was transferred to the EP lab where he was prepped and draped in the usual sterile fashion. Conscious sedation was initiated and maintained throughout the procedure by the anesthesiologist. Once sedation was verified, the left infraclavicular area was with 2% Xylocaine. Using modified Seldinger technique, the left subclavian vein was cannulated on two occasions and two guidewires were advanced. Then, using a #11 blade scalpel, a 2 cm was made two fingerbreadths below the left clavicle. This incision was then taken down through the deep fascial layer using Bovie cautery and blunt dissection. Into the inferomedial direction, device pocket was dissected, then the wire was dissected into the pocket. A 2- 0 Vicryl suture was placed around the wire to prevent backbleeding. At this point, over the lateral wire, an 7-Armenian dilator and introducer was advanced. As the dilator and wire were removed, an active fixation right ventricular pacing and sensing lead was advanced. After adequate pacing and sensing thresholds were obtained, the lead was secured in the pocket using 2-0 Ethibond suture. Then, over the remaining wire, an 7-Armenian dilator and introducer was advanced. As the dilator and wire were removed, an active fixation right atrial pacing and sensing lead was advanced. After adequate pacing and sensing thresholds were obtained, the lead was secured into the pocket using 2-0 Ethibond suture. At that point, the pocket was copiously irrigated using antibiotic solution. This was connected to the generator and placed into the pocket. I did proceed with wound closure. The deep fascial layer was approximated using 2-0 Vicryl suture in a continuous fashion. The subcutaneous layer was approximated with 2-0 Vicryl suture in a continuous fashion. The subcuticular layer was approximated with 2-0 Vicryl suture in a continuous fashion. Dermabond adhesive was applied to the wound followed by sterile pressure dressing. There was no complication. The patient tolerated procedure. Blood loss minimal. IMPLANTED HARDWARE The permanent pacemaker is a St Sid. Model # YT2434 serial number [id number]. The right atrial pacing and sensing lead is a St Sid model number 2088TC-52, serial number [id number]. The right ventricular pacing and sensing lead is aSt Sid model number 2088TC- 58, serial number [id number]. THRESHOLDS The right atrial pacing threshold in the bipolar mode was 0.5V @ 0.4 milliseconds, lead impedance 830 ohms and P-wave at 3.7 millivolts. The right ventricular pacing threshold in the bipolar mode was 0.5V @ 0.4 milliseconds, lead impedance 910 ohms and R-wave at the 4.1 millivolts. SETTINGS The device was set in the DDD60, upper limit 130 beats per minute. Hysteresis and mode switch are on. CONCLUSIONS: Successful permanent pacemaker implantation, COMMENT AND RECOMMENDATION The patient will be transferred to the telemetry unit. He will be observed. Further decision by the managing team. Trung Campbell MD March 05, 2018 17:08
[2018-03-05] MEDS ORDERED: SODIUM CHLORIDE 0.9% FLUSH 10 ML FLUSH IV FLUSH PRN (17:15)
--- NOTE | 2018-03-05 17:29 | CATHPROC ---
Patient Name: ERIC DOBBS Study #: [id number] Initial MD: Trung Campbell Date of : 1950 Study Date: 03/05/2018 Cardiac Catheterization Report 03/05/2018 5:28:59 PM Financial #: [id number] 1 of 9 Patient Name: ERIC DOBBS Study #: [id number] Initial MD: Trung Campbell Date of : 1950 Study Date: 03/05/2018 Entire Case Report Patient Information Patient Name ERIC DOBBS Date of 1950 Age 67 years Financial # [id number] Gender M AlternateID Lab Number 6 Room Number 1308 Height (in) 68.0 Height (cm) 172.7 BSA 1.82 Weight (lbs) 152.7 Weight (kg) 69.4 Patient Address/Phone Number Home Address [facility] Home Phone Number [facility] [phone] Study Information Study Number Admission Scheduled Start Study Start [id number] Feb 27 2018 2:52PM 03/05/2018 Mar 05 2018 2:55PM [place] [facility] Cardiac Pacer/ICD Admit Source Facility Department Other [facility] Registered Nurse Physician and Clinical Staff Initial Trung Hwang Packaging Associate Leonora Beard,TAILING MACHINE OPERATOR TECH2 Other Anesthesia, MANAGER INDUSTRIAL Recorder Olivia Gagnon,RN Vivianaub Hussein Rivas,RT(R) Procedures Performed Procedure Lead Insertion Equipment Time Retail Pharmacist Description Size Mfg Part Number Used/Scraped DERMABOND, ADHESIVE SKIN VM12 14:58 CORDIS/PACER * Used GLUE MINI *[id number] DERMABOND, ADHESIVE SKIN [id number] 15:47 CORDIS/PACER * Used GLUE MINI *[id number] TP-1103 14:58 MEDLINE INDUSTRIES SUTURE, STRIP PLUS 1/2" * Used *[id number] TP-1103 15:47 MEDLINE INDUSTRIES SUTURE, STRIP PLUS 1/2" * Used *[id number] 15:47 MEDLINE PACER CARVALHO, LIMB * 2530 *[id number] Used 03/05/2018 5:28:59 PM Financial #: [id number] 2 of 9 Patient Name: ERIC DOBBS Study #: [id number] Initial MD: Trung Campbell Date of : 1950 Study Date: 03/05/2018 14:58 MEDLINE PACER CARVALHO, LIMB * 2530 *[id number] Used [id number] 15:47 MEDLINE PACER PACK, PACER CUSTOM * Used *[id number] 14:58 MEDLINE PACER PACK, PACER CUSTOM * Used *1154858 15:47 Esphion PACER SAFE SHEATH, FR7, 13CM FR 7 CLS-1007 Used 15:47 [employer] MEDICAL PACER SAFE SHEATH, FR7, 13CM FR 7 CLS-1007 Used 16:35 Needle Sponge Count 20 200 Used 16:35 Needle Sponge Count 3 33 Used 16:35 Needle Sponge Count 4 4 Used SUTURE, 0 ETHIBOND [CT1] (CX21D), 8pk SUTURE, 0 ETHIBOND [CT1] (CX21D), 8pk SUTURE, 2-0 VICRYL [CT1] (MWX495S) SUTURE, 2-0 VICRYL [CT1] (NTI573I) SUTURE, 2-0 VICRYL [CT1] (NIK137V) SUTURE, 2-0 VICRYL [CT1] (DIQ453J) [id number] 15:47 [employer],WARM AIR CCL * Used *[id number] [id number] 14:58 [employer] BL[employer],WARM AIR CCL * Used *[id number] LEAD, TENDRIL STS 2088TC 16:49 [employer] 52CM 2088TC/52CM Used 52CM LEAD, TENDRIL STS 2088TC 16:45 [employer] 58CM 2088TC/58CM Used 58CM PACEMAKER, ASSURITY DR JAMES 16:54 [employer] [id number] Used MRI PACEMAKER, ASSURITY DR JAMES 16:57 [facility] [id number] Used MRI [place] PAD, ELECTROSURGICAL 14:58 * E7507 *[id number] Used SURGICAL GROUNDING ORANGE [place] PAD, ELECTROSURGICAL 15:47 * E7507 *[id number] Used SURGICAL GROUNDING ORANGE 4186-9762 15:47 [employer] CAROL. / * Used *39081 4093-9920 14:58 [employer]. / * Used *70413 Equipment Model, Serial, Lot Number and Expiration Data Description Model Number Serial Number Lot Number Expiration Date LEAD, TENDRIL STS 8TC 52CM 2087TC-52 [id number] 01-05-2021 LEAD, TENDRIL STS 8TC 58CM -58 [id number] 01-05-2021 PACEMAKER, ASSURITY DR JAMES MRI [id number] 08-07-2019 03/05/2018 5:28:59 PM Financial #: [id number] 3 of 9 Patient Name: ERIC DOBBS Study #: [id number] Initial MD: Trung Campbell Date of : 1950 Study Date: 03/05/2018 Insurance Information Insurance Payor [facility], Medicare Third Green Party Third Green Party Number NF [facility] History: Allergies Allergy Reaction No Known Allergies History: Risk Factors Hypertension Dyslipidemia Yes Yes Chronic Lung Disease Labs Hgb (g/dl) Hct (%) RBC (MIL/MM3) WBC (l/cumm) Platelets (thousands) 11.60-17.00 35.00-51.00 4.00-5.90 4.00-11.00 150.00-450.00 13.0 39 4.4 8.9 434 Glucose (mg/dl) BUN (mg/dl) Creatinine (mg/dl) BUN:Creatinine (1:x) 74.00-106.00 7.00-18.00 0.50-1.30 10.00-20.00 112 17 1.0 17 Na (meq/l) K (meq/l) 136.00-145.00 3.50-5.10 134 3.8 INR (PTT:PT) 0.90-1.10 1.1 Medication Medication Total Dose (Bolus/Oral) Medication Total Dosage/Unit 2% XYLOCAINE 50 mL Medications (Bolus/Oral) Medication Time Given Dosage/Unit Administered By Reason 2% XYLOCAINE 03/05/2018 4:41:23 PM 50 mL Trung Campbell 50 mL 2% XYLOCAINE given in lab by Trung Campbell in Left shoulder via Subcutaneous. Ordered by Trung Campbell. 03/05/2018 5:28:59 PM Financial #: [id number] 4 of 9 Patient Name: ERIC DOBBS Study #: [id number] Initial MD: Trung Campbell Date of : 1950 Study Date: 03/05/2018 Medication (Drip) Medication Time Given Dosage/Unit Concentration/Unit Diluent (ml) Solution ANCEF 03/05/2018 4:14:45 PM 2 g 2 g ANCEF given in lab by Anesthesia, MANAGER INDUSTRIAL in Left Forearm via Peripheral IV. Ordered by Mac Campbell Reason: As per physicians verbal order. ISUPREL DRIP STOPPED 03/05/2018 3:45:30 PM 0 units/hr 0 0 units/hr ISUPREL DRIP STOPPED given by Olivia Gagnon RN in Left Forearm via Peripheral IV. Pump/ Drip Flow = 0 ml/hr using [Solution Name]. Reason: As per physicians verbal order. VANCOMYCIN DRIP 03/05/2018 4:16:00 PM 1 g 1 g VANCOMYCIN DRIP given in lab by Anesthesia, MANAGER INDUSTRIAL in Left Antecubital via Peripheral IV. Ordered b Trung Bird. Reason: As per physicians verbal order. Initial Case Assessment Cardiovascular HR NIBP 76 179/104 Edema Present Skin color Skin None Normal Warm Dry Circulatory - Right Pulses Dorsalis Pedis 1 Scale (0,1,2,3,4,d) Circulatory - Left Pulses Dorsalis Pedis 1 Scale (0,1,2,3,4,d) Circulatory - Lower Extremities Color Lower Right Color Lower Left Normal Normal Neurological State Oriented to time-place- Alert Moves all extremities person Respiration - General Respiration Rate SpO2 (%) (B/min) 21 95 03/05/2018 5:28:59 PM Financial #: [id number] 5 of 9 Patient Name: ERIC DOBBS Study #: [id number] Initial MD: Trung Campbell Date of : 1950 Study Date: 03/05/2018 Final Case Assessment Cardiovascular HR NIBP 93 126/79 Edema Present Skin color Skin None Normal Warm Dry Circulatory - Right Pulses Dorsalis Pedis 1 Scale (0,1,2,3,4,d) Circulatory - Left Pulses Dorsalis Pedis 1 Scale (0,1,2,3,4,d) Circulatory - Lower Extremities Color Lower Right Color Lower Left Normal Normal Neurological State Drowsy Moves all extremities Respiration - General Respiration Rate SpO2 (%) (B/min) 12 100 Chronological Log Time Study Chronological Log 15:45:26 Patient arrived via Bed. 15:45:27 Patient Name, D.O.B, / Armband Verified By R.N. 15:45:28 A # 20 IV was noted in the Forearm (left). Grade = 0 0.9% NaCl @ KVO 15:45:29 Isuprel drip infusing at 1mcg/min to left forearm IV 0 units/hr ISUPREL DRIP STOPPED given by Olivia Gagnon, KUNAL in Left Forearm via Peripheral IV. Pump/Drip Flow = 0 15:45:30 ml/hr using [Solution Name]. Reason: As per physicians verbal order. 15:45:30 Consent signed by the physician and the patient and verified by the Advanced Registered Nurse staff. 15:45:35 Pre-op and post- op instructions given; patient acknowledges understanding of instructions. 15:45:44 Verbal Stimulation=2 Physical Stimulation=2 Airway=2 Respiration=2 TOTAL=8. (0=absent, 1=li mited, 2=present) 15:46:07 Presedation assessment performed by Advanced Registered Nurse RN. 03/05/2018 5:28:59 PM Financial #: [id number] 6 of 9 Patient Name: ERIC DOBBS Study #: [id number] Initial MD: Trung Campbell Date of : 1950 Study Date: 03/05/2018 15:46:09 Patient has been NPO for More than 6Hrs. 15:46:12 Patient Warmer Placed on the Table. 15:46:15 Disposable Defibrillator Pads Placed On Patient. 15:46:16 Loy Prominences Protected 15:46:17 Skin Breakdown/none per pt 15:55:00 Bovie ground pad applied to: left thigh Assessment: Initial Case, HR=76 BPM, ZNKA=330/104 mmhg, Edema=None, Color=Normal, Skin = Warm, Dry Right Pulses: Aramis Ped=1 Left Pulses: Aramis Ped=1 16:01:00 Lower Right Extremities: Color=Normal Lower Left Extremities: Color=Normal Neurological: State=Alert, Ox3, CRUZ Respiration: Resp=21 B/min, SpO2=95 % 16:01:11 2% CHLORHEXIDINE GLUCONATE WASH AND NASAL SWIPE DONE PRIOR TO PROCEDURE. 16:02:25 A # 22 IV was noted in the Forearm (right). Grade = 0 0.9% NaCl @ KVO 16:06:20 Table restraints applied according to hospital policy 2 g ANCEF given in lab by Anesthesia, MANAGER INDUSTRIAL in Left Forearm via Peripheral IV. Ordered by Trung Campbell. Reason: As 16:14:45 per physicians verbal order. 1 g VANCOMYCIN DRIP given in lab by Anesthesia, MANAGER INDUSTRIAL in Left Antecubital via Peripheral IV. Ord ered by Shannan, 16:16:00 Trung. Reason: As per physicians verbal order. First Sponge And Instrument Count Done by Hussein Rivas, RT(R). 16:16:27 Hypo's: 4, Sponges: 20, Bovie/scratch: 3 Sutures: 10, Blades: 1, Instruments: 26, Syveck Patches: ~SYVECK PATCH~ verified with BL RN 16:21:19 Dr Nieves here from anesthesia to observe LMA insertion. 16:21:31 MD arrived. 16:22:18 Reference ECG taken 16:26:38 Left Upper Chest Prepped Times Two. 16:31:53 A sterile drape was applied after a 5 minute prep drying time. Time Out. Correct patient, procedure, procedure equipment, site and side verified with physicia n present. Time 16:39:42 concurred by MD, individual staff and MANAGER INDUSTRIAL. Time Out #2 - Consents verified, patient in correct position, all results are labled and displa yed, safety precautions 16:39:48 taken, antibiotics administered. Time out concurred by MD, individual staff and MANAGER INDUSTRIAL in procedu re 16:39:49 Case Start 16:41:23 50 mL 2% XYLOCAINE given in lab by Trung Campbell in Left shoulder via Subcutaneous. Ordered by Trung Campbell. 16:42:09 Vascular access was obtained in the Subclav. Vein (Lft. 16:43:02 Vascular access was obtained in the Subclav. Vein (Lft. 16:43:57 A SAFE SHEATH, FR7, 13CM FR 7 was advanced into the Subclav. Vein (Lft using the Modified S eldinger technique. 16:44:11 A SAFE SHEATH, FR7, 13CM FR 7 was advanced into the Subclav. Vein (Lft using the Modified S eldinger technique. 16:48:22 A LEAD, TENDRIL STS 2088TC 58CM 58CM was inserted and positioned in the RV. 16:49:31 Lead placement verified under fluoroscopy 16:51:37 The RV lead impedance and threshold being tested. 16:52:00 The RV lead was sutured to the fascia. 03/05/2018 5:28:59 PM Financial #: [id number] 7 of 9 Patient Name: ERIC DOBBS Study #: [id number] Initial MD: Trung Campbell Date of : 1950 Study Date: 03/05/2018 16:52:20 A LEAD, TENDRIL STS 2088TC 52CM 52CM was inserted and positioned in the RA. 16:53:44 Lead placement verified under fluoroscopy 16:54:38 The Atrial lead impedance and threshold is being tested. 16:54:55 The Atrial lead was sutured to the fascia. 16:55:05 A pocket was created at the Lt. upper chest. 16:56:37 Pocket flushed with antibiotic solution 16:56:52 A PACEMAKER, MARYANN MCDONALD RF MRI was connected and placed in the pocket. 16:57:12 Implant Procedure was performed. 16:57:19 A PPM Implant . (Dual) Second Sponge And Instrument Count Done by Hussein Rivas RT(R). 16:57:41 Hypo's: 4, Sponges: 20, Bovie/scratch: 3 Sutures: 11, Blades: 1, Instruments:, Syveck Patches: ~SYVECK PATCH~ verified with HH 17:06:31 The pocket was closed. 17:08:43 PACU called. Spoke to Paresh 17:09:17 Bedside Report will be given. Final Sponge And Instrument Count Done by Hussein Rivas RT(R). 17:16:23 Hypo's: 4, Sponges: 20, Bovie/scratch: 3 Sutures: 12, Blades: 1, Instruments: 26, Syveck Patches: ~SYVECK PATCH~ verified with BL RN 17:18:37 Steri-strips and a sterile dressing applied to site. 17:19:43 Case End 17:19:59 No case complications noted. 17:20:00 Cine recording checked. 17:22:21 LMA removed by anesthesia. Assessment: Final Case, HR=93 BPM, DOOL=903/79 mmhg, Edema=None, Color=Normal, Skin = Warm, Dr y Right Pulses: Aramis Ped=1 Left Pulses: Aramis Ped=1 17:25:08 Lower Right Extremities: Color=Normal Lower Left Extremities: Color=Normal Neurological: State=Drowsy, CRUZ Respiration: Resp=12 B/min, ZvM6=007 % 17:28:09 Patient moved to bed 17:29:42 Defibrillator and ground pads removed. Skin intact. 17:30:20 A sling was placed on the affected arm. 17:31:45 Pt transported in stable condition via bed on supplemental oxygen by NC @ 4l/min with MANAGER INDUSTRIAL and tech accompanying End Study - Contrast Media Used In Study Contrast Total Opened (mL) Total Used (mL) Total Wasted (mL) Unspecified 0 0 0 03/05/2018 5:28:59 PM Financial #: [id number] 8 of Patient Name: ERIC DOBBS Study #: [id number] Initial MD: Trung Campbell Date of : 1950 Study Date: 03/05/2018 End Study - Maximum Contrast Load Max Contrast Load (mL) 347.0 End Study - Radiation Exposure Fluoro Time (minutes) 1.7 End Study - Patient Disposition Complications Transferred To No Telemetry Bed 03/05/2018 5:28:59 PM Financial #: [id number]
[2018-03-05] MEDS ORDERED: ceFAZolin 2 GM PREMIX 50 ML IV SCH (18:00)
[2018-03-05] MEDS ORDERED: DO NOT ADM ANY ANTICOAGULANT DRUGS PRN (18:15)
--- NOTE | 2018-03-05 18:18 | RADRPT ---
EXAM DATE: 03/05/2018 6:16 PM EDT AGE/SEX: 67 years / Male INDICATIONS: Pneumothorax. CLINICAL DATA: This is the patient's initial encounter. Patient reports that signs and symptoms have been present for 1 day and indicates a pain score of 0/10. MEDICAL/SURGICAL HISTORY: . Cardiovascular disease. Hypertension. Chronic obstructive pulmonary disease. None. COMPARISON: [facility] [place] SINGLE AP, 02/27/2018. . FINDINGS: A single AP view of the chest demonstrates the lungs to be symmetrically aerated without evidence of mass, infiltrate or effusion. Pacemaker left chest without pneumothorax. Mild commentated cardiomega ly previous upper posterior spinal fusion line CONCLUSION: Pacemaker in good position without pneumothorax Electronically signed by: Chris Zayas MD 03/05/2018 6:17 PM EDT
[2018-03-06] VITALS (13 sets, daily range): BP systolic 146–169; BP diastolic 86–95; PULSE 64–92; RESP 10–18; TEMP 97.9–99.3; O2SAT 94–98
[2018-03-06] MEDS: ceFAZolin 2 GM PREMIX 50 ML IV SCH ×2 (00:05→07:40)
[2018-03-06] MEDS: oxyCODONE/ACETAMINOPHEN 7.5 MG/325 MG TAB PO PRN ×3 (00:15→18:34)
[2018-03-06] MEDS: MORPHINE SULFATE 4 MG/ML INJ IV PUSH PRN ×4 (01:20→21:15)
[2018-03-06] MEDS: CHLORHEXIDINE GLUCONATE 2 % 1 PACK (2 CLOTHS) TOP SCH (04:00)
[2018-03-06] MEDS: LEVOTHYROXINE SODIUM 25 MCG TAB PO SCH (05:01)
[2018-03-06 05:50] LABS: BICARBONATE 25.2 MEQ/L (21.0-32.0); CALCIUM 8.5 MG/DL (8.5-10.1); CREATININE 1.13 MG/DL (0.60-1.30)
[2018-03-06] MEDS: SODIUM CHLOR 0.9% 1000 ML INJ 1,000 ML IV SCH ×2 (06:35→21:37)
[2018-03-06] MEDS: INSULIN NovoLIN REGULAR SUPPLEMENTAL SCALE SQ SCH ×4 (07:40→21:15)
[2018-03-06] MEDS: PANTOPRAZOLE SOD 40 MG DELAYED RELEASE TAB PO SCH ×2 (07:41→21:04)
[2018-03-06] MEDS: ARTIFICIAL TEARS OPTH SOLN 15 ML BTL EACH EYE SCH ×3 (07:41→17:32)
[2018-03-06] MEDS: BETHANECHOL CHL 10 MG TAB PO SCH ×3 (07:41→17:31)
[2018-03-06] MEDS: DOCUSATE SODIUM 50 MG/SENNA 8.6 MG TAB PO SCH ×2 (07:41→21:04)
[2018-03-06] MEDS: SODIUM CHLORIDE 0.9% FLUSH 10 ML FLUSH IV FLUSH SCH ×2 (07:41→21:05)
[2018-03-06] MEDS: BUDESONIDE-FORMOTEROL 160/4.5 MCG INHALER INH SCH ×2 (07:55→21:06)
--- NOTE | 2018-03-06 08:34 | PD.CARD.PN ---
Subjective Subjective Remarks Feeling better. Complains of pain in the left chest wall incision site. Objective Medications Current Medications Medications (Trade) Dose Ordered Sig/Jose De Jesus Route Start Time Stop Time Status Last Admin (Urecholine) 10 mg TID PO 02/27/18 18:00 03/06/18 07:41 (Protonix) 40 mg BID PO 02/27/18 21:00 03/06/18 07:41 (Flomax) 0.4 mg DAILY PO 02/28/18 09:00 Future Hold 02/28/18 09:18 (Symbicort 160-4.5 Mcg Inh) 2 puff BID INH 02/27/18 21:00 03/06/18 07:55 Sodium Chloride 1,000 ml @ 30 mls/hr Q24H IV 02/27/18 15:00 03/05/18 08:18 (Tylenol) 650 mg Q6H PRN PO 02/27/18 15:00 02/27/18 20:13 (Morphine Inj) 2 mg Q2H PRN IV PUSH 02/27/18 15:00 03/06/18 05:01 (Tears Naturale Opth Soln) 1 drop TID EACH EYE 02/27/18 18:00 03/06/18 07:41 (Zofran Odt) 4 mg Q6H PRN PO 02/27/18 15:15 03/05/18 08:19 (Albuterol Neb) 2.5 mg Q2HR NEB PRN INH 02/27/18 15:00 ([facility] 1 Q361D XX 02/27/18 15:00 02/27/18 15:00 (Chlorhexidine 2% Cloth) Taper DAILY@04 TOP 02/28/18 04:00 02/24/19 03:59 03/06/18 04:00 (Chlorhexidine 2% Cloth) 3 pack UNSCH PRN TOP 02/27/18 15:00 (Asha-Colace) 1 tab BID PO 02/27/18 21:00 03/06/18 07:41 (Milk Of Magnesia Liq) 30 ml Q12H PRN PO 02/27/18 15:00 (Senokot) 17.2 mg Q12H PRN PO 02/27/18 15:00 (Dulcolax Supp) 10 mg DAILY PRN RECTAL 02/27/18 15:00 (Lactulose Liq) 30 ml DAILY PRN PO 02/27/18 15:00 (Compazine Inj) 5 mg Q4H PRN IV PUSH 02/27/18 15:30 (Phenergan Supp) 25 mg Q6H PRN RECTAL 02/27/18 15:30 (D50w (Vial) Inj) 50 ml UNSCH PRN IV PUSH 02/27/18 15:30 (Glucagon Inj) 1 mg UNSCH PRN OTHER 02/27/18 15:30 (NovoLIN R SUPPLEMENTAL SCALE) 1 ACHS SLIDING SCALE SQ 02/27/18 17:00 03/03/18 08:56 (Synthroid) 25 mcg DAILY@0600 PO 03/01/18 08:45 03/06/18 05:01 (Apresoline Inj) 20 mg Q4H PRN IV PUSH 03/04/18 08:45 (Percocet 7.5-325 Mg) 1 tab Q4H PRN PO 03/04/18 14:00 03/06/18 00:15 (Apresoline) 20 mg Q4H PRN PO 03/04/18 21:00 03/05/18 20:27 (NS Flush) 2 ml BID IV FLUSH 03/05/18 21:00 03/06/18 07:41 (NS Flush) 2 ml UNSCH PRN IV FLUSH 03/05/18 17:15 ([facility] [facility] [place] ALL NURSING DEPARTME... UNSCH PRN .XX 03/05/18 18:15 03/06/18 18:14 Cefazolin Sodium/ Dextrose 50 ml @ 100 mls/hr Q8H IV 03/06/18 00:00 03/06/18 16:29 03/06/18 07:40 Vital Signs / I&O Vital Signs Date Time Temp Pulse Resp B/P (MAP) Pulse Ox O2 Delivery O2 Flow Rate FiO2 03/06/18 06:00 66 03/06/18 04:00 64 03/06/18 04:00 98.8 64 12 147/86 (106) 94 03/06/18 02:00 74 03/06/18 00:00 76 03/06/18 00:00 99.3 76 11 146/88 (107) 98 03/05/18 22:00 90 03/05/18 20:02 99 Nasal Cannula 3.00 5/29/18 20:00 98.8 74 15 170/94 (119) 100 03/05/18 20:00 80 03/05/18 19:00 96 Nasal Cannula 2.00 03/05/18 18:15 80 03/05/18 18:00 98.6 86 15 162/98 (119) 96 Nasal Cannula 3 03/05/18 17:45 92 15 167/99 (121) 96 Nasal Cannula 3 03/05/18 17:38 98.6 97 15 166/96 (119) 93 Nasal Cannula 3 03/05/18 14:00 72 03/05/18 12:00 98.2 78 20 156/81 (106) 93 03/05/18 12:00 68 03/05/18 10:23 67 155/90 03/05/18 10:00 66 I/O 03/05/18 03/05/18 03/05/18 03/06/18 03/06/18 03/06/18 07:00 15:00 23:00 07:00 15:00 23:00 Intake Total 0 ml 750 ml 0 ml 400 ml Output Total 1075 ml 400 ml 1050 ml Balance -1075 ml 750 ml -400 ml -650 ml Intake Oral 0 ml 0 ml 400 ml IV Total 750 ml Output Urine Total 1075 ml 400 ml 1050 ml # Voids 6 4 # Bowel Movements 1 1 0 Physical Exam GENERAL: Well-nourished, well-developed patient. SKIN: Warm and dry. Left chest wall incision well approximated without bruising or bleeding. HEAD: Normocephalic. Hard of hearing, wearing hearing aids. EYES: No scleral icterus. No injection or drainage. NECK: Supple, trachea midline. No JVD or lymphadenopathy. CARDIOVASCULAR: Regular rate and rhythm without murmurs, gallops, or rubs. RESPIRATORY: Breath sounds equal bilaterally. No accessory muscle use. GASTROINTESTINAL: Abdomen soft, non-tender, nondistended. EXTREMITIES: No cyanosis, or edema. NEUROLOGICAL: Awake, alert, and oriented x 3. Non-focal. Laboratory Laboratory Tests Test 03/06/18 03:30 Blood Urea Nitrogen 20 MG/DL Creatinine 1.13 MG/DL Random Glucose 121 MG/DL Calcium Level 8.5 MG/DL Sodium Level 133 MEQ/L Potassium Level 4.4 MEQ/L Chloride Level 97 MEQ/L Carbon Dioxide Level 25.2 MEQ/L Anion Gap 11 MEQ/L Estimat Glomerular Filtration Rate 65 ML/MIN Imaging Last Impressions Head CT 03/05/18 Signed Impressions: CONCLUSION: 1. Evolving bilateral frontal subdural hematomas and no change in left anterio r temporal middle cranial fossa subdural hematoma. 2. No mass effect. Chest X-Ray 03/05/18 Signed Impressions: CONCLUSION: Pacemaker in good position without pneumothorax Carotid Artery Ultrasound 02/27/18 Signed Impressions: CONCLUSION: 1. Right Internal Carotid Artery: Findings indicate <50% stenosis. 2. Left Internal Carotid Artery: No significant stenosis or atherosclerotic pl aque is visualized. Assessment and Plan Problem List: (1) Asystole ICD Codes: I46.9 - Cardiac arrest, cause unspecified Plan: 8 second pause seen on telemetry, class I indication for pacemaker implantation. Patient appropriately on telemetry. (2) S/P cardiac pacemaker procedure ICD Codes: Z95.0 - Presence of cardiac pacemaker Plan: Stable status post dual-chamber St Sid permanent pacemaker implantation. Keflex 500 mg p.o. 3 times daily 3 days, begin 8 hours after last dose of Ancef. Left arm lifting restriction of 5 pounds 6 weeks. Shower daily, allow Steri-Strips to get wet. Give patient copy of Dr. Campbell's permanent pacemaker discharge instructions. Can be discharged from EP standpoint at the discretion of the managing team. Follow-up with Dr. Campbell in 2 weeks per my discussion with him. Tran Segura March 06, 2018 08:34
[2018-03-06] MEDS: hydrALAZINE HCL 10 MG TAB PO PRN ×2 (09:29→21:32)
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
--- NOTE | 2018-03-06 11:54 | HHI.FF ---
Face to Face Verification Diagnosis: (1) S/P cardiac pacemaker procedure (2) Tobacco abuse (3) Leukocytosis (4) Hyperlipidemia (5) Hyperglycemia (6) Traumatic intracranial subdural hematoma with brief loss ofconsciousness (7) Fall (8) Occipital bone fracture (9) Adjustment disorder with mixed anxiety and depressed mood Physical Therapy Order: Evaluate and Treat, Improve ambulation, Strength and gait training Occupational Therapy Order: Evaluate and Treat, Improve ADL, Gross motor coordination, Fine motor coordination Home Health Nursing Order: Medical education Signs/symptoms of disease process Nursing assessment with vital signs Home Health Aide Order: To Assist In: Bathing and personal care, rural health consultant and meal prep I have seen patient David Cha on 03/06/18. My clinical findings support the need for the requested home health care services because: Ltd mobility - disease progression Deconditioned w/ increased weakness Med compliance is questionable Limited ability to care for self I certify that my clinical findings support that this patient is homebound because: Post-op weakness Unsteady gait/balance Need for psychosocial assistance Chris Smith DO March 06, 2018 11:54
--- NOTE | 2018-03-06 13:25 | PD.CARD.PN ---
Subjective Subjective Remarks alert in nad Objective Medications Current Medications Medications (Trade) Dose Ordered Sig/Jose De Jesus Route Start Time Stop Time Status Last Admin (Urecholine) 10 mg TID PO 02/27/18 18:00 03/06/18 13:08 (Protonix) 40 mg BID PO 02/27/18 21:00 03/06/18 07:41 (Flomax) 0.4 mg DAILY PO 02/28/18 09:00 Future Hold 02/28/18 09:18 (Symbicort 160-4.5 Mcg Inh) 2 puff BID INH 02/27/18 21:00 03/06/18 07:55 Sodium Chloride 1,000 ml @ 30 mls/hr Q24H IV 02/27/18 15:00 03/05/18 08:18 (Tylenol) 650 mg Q6H PRN PO 02/27/18 15:00 02/27/18 20:13 (Morphine Inj) 2 mg Q2H PRN IV PUSH 02/27/18 15:00 03/06/18 09:24 (Tears Naturale Opth Soln) 1 drop TID EACH EYE 02/27/18 18:00 03/06/18 13:00 (Zofran Odt) 4 mg Q6H PRN PO 02/27/18 15:15 03/05/18 08:19 (Albuterol Neb) 2.5 mg Q2HR NEB PRN INH 02/27/18 15:00 ([facility] Nursing Information) 1 Q361D XX 02/27/18 15:00 02/27/18 15:00 (Chlorhexidine 2% Cloth) Taper DAILY@04 TOP 02/28/18 04:00 02/24/19 03:59 03/06/18 04:00 (Chlorhexidine 2% Cloth) 3 pack UNSCH PRN TOP 02/27/18 15:00 (Asha-Colace) 1 tab BID PO 02/27/18 21:00 03/06/18 07:41 (Milk Of Magnesia Liq) 30 ml Q12H PRN PO 02/27/18 15:00 (Senokot) 17.2 mg Q12H PRN PO 02/27/18 15:00 (Dulcolax Supp) 10 mg DAILY PRN RECTAL 02/27/18 15:00 (Lactulose Liq) 30 ml DAILY PRN PO 02/27/18 15:00 (Compazine Inj) 5 mg Q4H PRN IV PUSH 02/27/18 15:30 (Phenergan Supp) 25 mg Q6H PRN RECTAL 02/27/18 15:30 (D50w (Vial) Inj) 50 ml UNSCH PRN IV PUSH 02/27/18 15:30 (Glucagon Inj) 1 mg UNSCH PRN OTHER 02/27/18 15:30 (NovoLIN R SUPPLEMENTAL SCALE) 1 ACHS SLIDING SCALE SQ 02/27/18 17:00 03/03/18 08:56 (Synthroid) 25 mcg DAILY@0600 PO 03/01/18 08:45 03/06/18 05:01 (Apresoline Inj) 20 mg Q4H PRN IV PUSH 03/04/18 08:45 (Percocet 7.5-325 Mg) 1 tab Q4H PRN PO 03/04/18 14:00 03/06/18 13:18 (Apresoline) 20 mg Q4H PRN PO 03/04/18 21:00 03/06/18 09:29 (NS Flush) 2 ml BID IV FLUSH 03/05/18 21:00 03/06/18 07:41 (NS Flush) 2 ml UNSCH PRN IV FLUSH 03/05/18 17:15 ([facility] Nursing Information) ALL NURSING DEPARTME... UNSCH PRN .XX 03/05/18 18:15 03/06/18 18:14 (Keflex) 500 mg Q8HR PO 03/06/18 14:00 03/09/18 13:59 Vital Signs / I&O Vital Signs Date Time Temp Pulse Resp B/P (MAP) Pulse Ox O2 Delivery O2 Flow Rate FiO2 03/06/18 12:00 74 03/06/18 12:00 98.2 74 18 153/90 (111) 94 03/06/18 10:00 84 03/06/18 08:00 97.9 65 10 168/95 (119) 94 03/06/18 08:00 65 03/06/18 07:00 94 Nasal Cannula 2.00 03/06/18 06:00 66 03/06/18 04:00 64 03/06/18 04:00 98.8 64 12 147/86 (106) 94 03/06/18 02:00 74 03/06/18 00:00 76 03/06/18 00:00 99.3 76 11 146/88 (107) 98 03/05/18 22:00 90 03/05/18 20:02 99 Nasal Cannula 3.00 03/05/18 20:00 98.8 74 15 170/94 (119) 100 03/05/18 20:00 80 03/05/18 19:00 96 Nasal Cannula 2.00 03/05/18 18:15 80 03/05/18 18:00 98.6 86 15 162/98 (119) 96 Nasal Cannula 3 03/05/18 17:45 92 15 167/99 (121) 96 Nasal Cannula 3 03/05/18 17:38 98.6 97 15 166/96 (119) 93 Nasal Cannula 3 03/05/18 14:00 72 I/O 03/05/18 03/05/18 03/05/18 03/06/18 03/06/18 03/06/18 07:00 15:00 23:00 07:00 15:00 23:00 Intake Total 0 ml 750 ml 0 ml 400 ml 50 ml Output Total 1075 ml 400 ml 1050 ml Balance -1075 ml 750 ml -400 ml -650 ml 50 ml Intake Oral 0 ml 0 ml 400 ml IV Total 750 ml 50 ml Output Urine Total 1075 ml 400 ml 1050 ml # Voids 6 4 # Bowel Movements 1 1 0 Physical Exam GENERAL: SKIN: Warm and dry. HEAD: Normocephalic. EYES: No scleral icterus. No injection or drainage. NECK: Supple, trachea midline. No JVD or lymphadenopathy. CARDIOVASCULAR: Regular rate and rhythm without murmurs, gallops, or rubs. RESPIRATORY: Breath sounds equal bilaterally. No accessory muscle use. GASTROINTESTINAL: Abdomen soft, non-tender, nondistended. MUSCULOSKELETAL: No cyanosis, or edema. BACK: Nontender without obvious deformity. No CVA tenderness. Laboratory Laboratory Tests Test 03/06/18 03:30 Blood Urea Nitrogen 20 MG/DL Creatinine 1.13 MG/DL Random Glucose 121 MG/DL Calcium Level 8.5 MG/DL Sodium Level 133 MEQ/L Potassium Level 4.4 MEQ/L Chloride Level 97 MEQ/L Carbon Dioxide Level 25.2 MEQ/L Anion Gap 11 MEQ/L Estimat Glomerular Filtration Rate 65 ML/MIN Assessment and Plan Problem List: (1) Asystole ICD Codes: I46.9 - Cardiac arrest, cause unspecified (2) S/P cardiac pacemaker procedure ICD Codes: Z95.0 - Presence of cardiac pacemaker Assessment and Plan 1.) Asystole - stable pod # 1 ppm placement Nick Bennett MD March 06, 2018 13:25
--- NOTE | 2018-03-06 14:12 | EKG ---
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
[2018-03-06] MEDS: CEPHALEXIN MONOHYDRATE 500 MG CAP PO SCH ×2 (15:33→21:33)
--- NOTE | 2018-03-06 17:43 | EKG ---
Date Performed: 03/06/2018 Time Performed: 07:20:40 PTAGE: 67 years EKG: Sinus rhythm WITH FIRST DEGREE AV BLOCK MODERATE T-WAVE ABNORMALITY, CONSIDER LATERAL ISCHEMIA ABNORMAL ECG Since PREVIOUS TRACING , now normal R progression PREVIOUS TRACIN03/05/2018 17.50 DOCTOR: Cassandra Murrieta Interpretating Date/Time 03/06/2018 17:42:33
[2018-03-07] VITALS (10 sets, daily range): BP systolic 126–172; BP diastolic 78–90; PULSE 60–100; RESP 13–24; TEMP 97.6–98.7; O2SAT 94–97
[2018-03-07] MEDS: oxyCODONE/ACETAMINOPHEN 7.5 MG/325 MG TAB PO PRN ×6 (00:25→23:30)
[2018-03-07] MEDS: hydrALAZINE HCL 10 MG TAB PO PRN (00:25)
[2018-03-07] MEDS: CHLORHEXIDINE GLUCONATE 2 % 1 PACK (2 CLOTHS) TOP SCH (03:32)
[2018-03-07] MEDS: LEVOTHYROXINE SODIUM 25 MCG TAB PO SCH (04:24)
[2018-03-07] MEDS: CEPHALEXIN MONOHYDRATE 500 MG CAP PO SCH ×3 (05:12→22:21)
[2018-03-07 06:06] LABS: AUTOMATED NEUTROPHIL # 8.3 TH/MM3 (1.8-7.7); BASOPHIL # 0.1 TH/MM3 (0-0.2); BASOPHIL % 0.7 % (0.0-2.0); EOSINOPHIL # 0.1 TH/MM3 (0-0.4); EOSINOPHIL % 0.8 % (0.0-4.0); HEMATOCRIT 39.6 % (39.0-51.0); HEMOGLOBIN 13.6 GM/DL (13.0-17.0); LYMPH % 8.8 % (9.0-44.0); LYMPHOCYTE # 0.9 TH/MM3 (1.0-4.8); MEAN CELL VOLUME 89.4 FL (80.0-100.0); MEAN CORPUSCULAR HEMOGLOBIN 30.8 PG (27.0-34.0); MEAN CORPUSCULAR HGB CONC 34.4 % (32.0-36.0); MEAN PLATELET VOLUME 8.2 FL (7.0-11.0); MONO % 9.5 % (0.0-8.0); NEUT % 80.2 % (16.0-70.0); PLATELET COUNT 432 TH/MM3 (150-450); RED BLOOD COUNT 4.43 MIL/MM3 (4.50-5.90); RED CELL DISTRIBUTION WIDTH 13.8 % (11.6-17.2); WHITE BLOOD COUNT 10.3 TH/MM3 (4.0-11.0)
[2018-03-07 06:39] LABS: ALBUMIN 2.8 GM/DL (3.4-5.0); AST (GOT) 21 U/L (15-37); BICARBONATE 24.5 MEQ/L (21.0-32.0); BLOOD UREA NITROGEN 20 MG/DL (7-18); CALCIUM 8.4 MG/DL (8.5-10.1); CHLORIDE 100 MEQ/L (98-107); CREATININE 0.97 MG/DL (0.60-1.30); GLOMERULAR FILTRATION RATE 77 ML/MIN (>89); GLUCOSE,RANDOM 100 MG/DL (74-106); SODIUM (NA) 136 MEQ/L (136-145)
[2018-03-07 06:40] LABS: ALT (GPT) 25 U/L (12-78)
[2018-03-07 06:49] LABS: ALKALINE PHOSPHATASE 63 U/L (45-117); PHOSPHORUS 2.8 MG/DL (2.5-4.9); TOTAL BILIRUBIN ADULT 0.4 MG/DL (0.2-1.0); TOTAL PROTEIN 6.1 GM/DL (6.4-8.2)
[2018-03-07] MEDS: INSULIN NovoLIN REGULAR SUPPLEMENTAL SCALE SQ SCH ×4 (08:00→21:00)
[2018-03-07] MEDS: PANTOPRAZOLE SOD 40 MG DELAYED RELEASE TAB PO SCH ×2 (09:20→22:21)
[2018-03-07] MEDS: SODIUM CHLORIDE 0.9% FLUSH 10 ML FLUSH IV FLUSH SCH ×2 (09:20→22:22)
[2018-03-07] MEDS: DOCUSATE SODIUM 50 MG/SENNA 8.6 MG TAB PO SCH ×2 (09:20→22:21)
[2018-03-07] MEDS: ARTIFICIAL TEARS OPTH SOLN 15 ML BTL EACH EYE SCH ×3 (09:21→18:00)
[2018-03-07] MEDS: BUDESONIDE-FORMOTEROL 160/4.5 MCG INHALER INH SCH ×2 (09:21→22:22)
[2018-03-07] MEDS: BETHANECHOL CHL 10 MG TAB PO SCH ×3 (09:50→18:00)
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
[2018-03-07] MEDS: amLODIPine BESYLATE 5 MG TAB PO SCH ×2 (13:00→22:21)
[2018-03-07] MEDS: TAMSULOSIN HCL 0.4 MG CAP PO SCH (13:01)
[2018-03-07] MEDS: LISINOPRIL 5 MG TAB PO SCH (13:01)
--- NOTE | 2018-03-07 14:29 | PD.CARD.PN ---
Subjective Subjective Remarks alert in nad Objective Medications Current Medications Medications (Trade) Dose Ordered Sig/Jose De Jesus Route Start Time Stop Time Status Last Admin (Urecholine) 10 mg TID PO 02/27/18 18:00 03/07/18 13:00 (Protonix) 40 mg BID PO 02/27/18 21:00 03/07/18 09:20 (Symbicort 160-4.5 Mcg Inh) 2 puff BID INH 02/27/18 21:00 03/07/18 09:21 Sodium Chloride 1,000 ml @ 30 mls/hr Q24H IV 02/27/18 15:00 03/06/18 21:37 (Tylenol) 650 mg Q6H PRN PO 02/27/18 15:00 02/27/18 20:13 (Morphine Inj) 2 mg Q2H PRN IV PUSH 02/27/18 15:00 03/06/18 21:15 (Tears Naturale Opth Soln) 1 drop TID EACH EYE 02/27/18 18:00 03/07/18 13:01 (Zofran Odt) 4 mg Q6H PRN PO 02/27/18 15:15 03/05/18 08:19 (Albuterol Neb) 2.5 mg Q2HR NEB PRN INH 02/27/18 15:00 ([facility] [facility] 1 Q361D XX 02/27/18 15:00 02/27/18 15:00 (Chlorhexidine 2% Cloth) Taper DAILY@04 TOP 02/28/18 04:00 02/24/19 03:59 03/07/18 03:32 (Chlorhexidine 2% Cloth) 3 pack UNSCH PRN TOP 02/27/18 15:00 (Asha-Colace) 1 tab BID PO 02/27/18 21:00 03/07/18 09:20 (Milk Of Magnesia Liq) 30 ml Q12H PRN PO 02/27/18 15:00 (Senokot) 17.2 mg Q12H PRN PO 02/27/18 15:00 (Dulcolax Supp) 10 mg DAILY PRN RECTAL 02/27/18 15:00 (Lactulose Liq) 30 ml DAILY PRN PO 02/27/18 15:00 (Compazine Inj) 5 mg Q4H PRN IV PUSH 02/27/18 15:30 (Phenergan Supp) 25 mg Q6H PRN RECTAL 02/27/18 15:30 (D50w (Vial) Inj) 50 ml UNSCH PRN IV PUSH 02/27/18 15:30 (Glucagon Inj) 1 mg UNSCH PRN OTHER 02/27/18 15:30 (NovoLIN R SUPPLEMENTAL SCALE) 1 ACHS SLIDING SCALE SQ 02/27/18 17:00 03/07/18 13:20 (Synthroid) 25 mcg DAILY@0600 PO 03/01/18 08:45 03/07/18 04:24 (Apresoline Inj) 20 mg Q4H PRN IV PUSH 03/04/18 08:45 (Percocet 7.5-325 Mg) 1 tab Q4H PRN PO 03/04/18 14:00 03/07/18 13:51 (Apresoline) 20 mg Q4H PRN PO 03/04/18 21:00 03/07/18 00:25 (NS Flush) 2 ml BID IV FLUSH 03/05/18 21:00 03/07/18 09:20 (NS Flush) 2 ml UNSCH PRN IV FLUSH 03/05/18 17:15 (Keflex) 500 mg Q8HR PO 03/06/18 14:00 03/09/18 13:59 03/07/18 13:00 (Norvasc) 5 mg BID PO 03/07/18 11:00 03/07/18 13:00 (Flomax) 0.4 mg DAILY PO 03/07/18 11:00 03/07/18 13:01 (Prinivil) 5 mg DAILY PO 03/07/18 11:00 03/07/18 13:01 Vital Signs / I&O Vital Signs Date Time Temp Pulse Resp B/P (MAP) Pulse Ox O2 Delivery O2 Flow Rate FiO2 03/07/18 12:00 98.4 77 17 126/83 (97) 94 03/07/18 11:09 97 21 03/07/18 10:00 72 03/07/18 08:00 98.2 60 13 149/87 (107) 95 03/07/18 08:00 62 03/07/18 07:00 95 Room Air 03/07/18 06:34 18 03/07/18 04:00 97.6 61 16 168/82 (110) 95 03/07/18 00:00 98.7 72 18 172/90 (117) 95 03/06/18 22:06 14 03/06/18 20:27 95 03/06/18 20:00 98.4 64 14 169/95 (119) 95 03/06/18 19:35 Room Air 03/06/18 18:00 70 03/06/18 16:00 98.3 74 15 154/88 (110) 94 03/06/18 16:00 74 I/O 03/06/18 03/06/18 03/06/18 03/07/18 03/07/18 03/07/18 07:00 15:00 23:00 07:00 15:00 23:00 Intake Total 400 ml 50 ml 960 ml 400 ml 540 ml Output Total 1050 ml 750 ml 800 ml 450 ml Balance -650 ml 50 ml 210 ml -400 ml 90 ml Intake Oral 400 ml 960 ml 400 ml 540 ml IV Total 50 ml Output Urine Total 1050 ml 750 ml 800 ml 450 ml # Voids 4 2 # Bowel Movements 0 0 Physical Exam GENERAL: SKIN: Warm and dry. HEAD: Normocephalic. EYES: No scleral icterus. No injection or drainage. NECK: Supple, trachea midline. No JVD or lymphadenopathy. CARDIOVASCULAR: Regular rate and rhythm without murmurs, gallops, or rubs. RESPIRATORY: Breath sounds equal bilaterally. No accessory muscle use. GASTROINTESTINAL: Abdomen soft, non-tender, nondistended. MUSCULOSKELETAL: No cyanosis, or edema. BACK: Nontender without obvious deformity. No CVA tenderness. Laboratory Laboratory Tests Test 03/07/18 04:23 White Blood Count 10.3 TH/MM3 Red Blood Count 4.43 MIL/MM3 Hemoglobin 13.6 GM/DL Hematocrit 39.6 % Mean Corpuscular Volume 89.4 FL Mean Corpuscular Hemoglobin 30.8 PG Mean Corpuscular Hemoglobin Concent 34.4 % Red Cell Distribution Width 13.8 % Platelet Count 432 TH/MM3 Mean Platelet Volume 8.2 FL Neutrophils (%) (Auto) 80.2 % Lymphocytes (%) (Auto) 8.8 % Monocytes (%) (Auto) 9.5 % Eosinophils (%) (Auto) 0.8 % Basophils (%) (Auto) 0.7 % Neutrophils # (Auto) 8.3 TH/MM3 Lymphocytes # (Auto) 0.9 TH/MM3 Monocytes # (Auto) 1.0 TH/MM3 Eosinophils # (Auto) 0.1 TH/MM3 Basophils # (Auto) 0.1 TH/MM3 CBC Comment DIFF FINAL Differential Comment Blood Urea Nitrogen 20 MG/DL Creatinine 0.97 MG/DL Random Glucose 100 MG/DL Total Protein 6.1 GM/DL Albumin 2.8 GM/DL Calcium Level 8.4 MG/DL Phosphorus Level 2.8 MG/DL Magnesium Level 2.0 MG/DL Alkaline Phosphatase 63 U/L Aspartate Amino Transf (AST/SGOT) 21 U/L Alanine Aminotransferase (ALT/SGPT) 25 U/L Total Bilirubin 0.4 MG/DL Sodium Level 136 MEQ/L Potassium Level 4.1 MEQ/L Chloride Level 100 MEQ/L Carbon Dioxide Level 24.5 MEQ/L Anion Gap 12 MEQ/L Estimat Glomerular Filtration Rate 77 ML/MIN Assessment and Plan Problem List: (1) Asystole ICD Codes: I46.9 - Cardiac arrest, cause unspecified (2) S/P cardiac pacemaker procedure ICD Codes: Z95.0 - Presence of cardiac pacemaker Assessment and Plan 1.) Asystole - stable pod # 2 ppm placement Nick Bennett MD March 07, 2018 14:29
[2018-03-08 00:05] VITALS: BP 146/85; PULSE 87; RESP 18; TEMP 98.3; O2SAT 94
[2018-03-08] MEDS: SODIUM CHLOR 0.9% 1000 ML INJ 1,000 ML IV SCH (01:38)
[2018-03-08] MEDS: MORPHINE SULFATE 4 MG/ML INJ IV PUSH PRN ×2 (01:44→08:18)
[2018-03-08] MEDS: CHLORHEXIDINE GLUCONATE 2 % 1 PACK (2 CLOTHS) TOP SCH (04:00)
[2018-03-08] MEDS: oxyCODONE/ACETAMINOPHEN 7.5 MG/325 MG TAB PO PRN ×2 (04:24→13:08)
[2018-03-08 04:39] VITALS: BP 126/77; PULSE 87; RESP 18; TEMP 97.7; O2SAT 94
[2018-03-08] MEDS: CEPHALEXIN MONOHYDRATE 500 MG CAP PO SCH ×2 (05:42→13:07)
[2018-03-08] MEDS: LEVOTHYROXINE SODIUM 25 MCG TAB PO SCH (05:42)
[2018-03-08 08:06] VITALS: BP 132/84; PULSE 73; RESP 18; TEMP 97.4; O2SAT 94
[2018-03-08] MEDS: DOCUSATE SODIUM 50 MG/SENNA 8.6 MG TAB PO SCH (08:17)
[2018-03-08] MEDS: BETHANECHOL CHL 10 MG TAB PO SCH ×2 (08:17→13:07)
[2018-03-08] MEDS: TAMSULOSIN HCL 0.4 MG CAP PO SCH (08:17)
[2018-03-08] MEDS: amLODIPine BESYLATE 5 MG TAB PO SCH (08:17)
[2018-03-08] MEDS: PANTOPRAZOLE SOD 40 MG DELAYED RELEASE TAB PO SCH (08:18)
[2018-03-08] MEDS: LISINOPRIL 5 MG TAB PO SCH (08:18)
[2018-03-08] MEDS: INSULIN NovoLIN REGULAR SUPPLEMENTAL SCALE SQ SCH ×2 (08:19→13:07)
[2018-03-08] MEDS: SODIUM CHLORIDE 0.9% FLUSH 10 ML FLUSH IV FLUSH SCH (08:19)
[2018-03-08] MEDS: ARTIFICIAL TEARS OPTH SOLN 15 ML BTL EACH EYE SCH ×2 (08:20→13:09)
[2018-03-08] MEDS: BUDESONIDE-FORMOTEROL 160/4.5 MCG INHALER INH SCH (08:20)
[2018-03-08 08:42] LABS: AUTOMATED NEUTROPHIL # 7.5 TH/MM3 (1.8-7.7); BASOPHIL % 0.5 % (0.0-2.0); EOSINOPHIL # 0.1 TH/MM3 (0-0.4); EOSINOPHIL % 1.4 % (0.0-4.0); HEMATOCRIT 40.6 % (39.0-51.0); HEMOGLOBIN 13.9 GM/DL (13.0-17.0); LYMPH % 9.1 % (9.0-44.0); LYMPHOCYTE # 0.9 TH/MM3 (1.0-4.8); MEAN CELL VOLUME 90.1 FL (80.0-100.0); MEAN CORPUSCULAR HEMOGLOBIN 30.7 PG (27.0-34.0); MEAN CORPUSCULAR HGB CONC 34.1 % (32.0-36.0); MEAN PLATELET VOLUME 8.4 FL (7.0-11.0); MONO % 11.4 % (0.0-8.0); MONOCYTE # 1.1 TH/MM3 (0-0.9); NEUT % 77.6 % (16.0-70.0); PLATELET COUNT 435 TH/MM3 (150-450); RED BLOOD COUNT 4.51 MIL/MM3 (4.50-5.90); RED CELL DISTRIBUTION WIDTH 14.2 % (11.6-17.2); WHITE BLOOD COUNT 9.6 TH/MM3 (4.0-11.0)
[2018-03-08 09:01] LABS: ALBUMIN 2.9 GM/DL (3.4-5.0); AST (GOT) 17 U/L (15-37); BLOOD UREA NITROGEN 19 MG/DL (7-18); CALCIUM 8.5 MG/DL (8.5-10.1); CHLORIDE 99 MEQ/L (98-107); GLOMERULAR FILTRATION RATE 74 ML/MIN (>89); GLUCOSE,RANDOM 105 MG/DL (74-106); MAGNESIUM 2.1 MG/DL (1.5-2.5); SODIUM (NA) 134 MEQ/L (136-145)
[2018-03-08 09:08] LABS: ALKALINE PHOSPHATASE 64 U/L (45-117); ALT (GPT) 21 U/L (12-78); PHOSPHORUS 3.3 MG/DL (2.5-4.9); TOTAL BILIRUBIN ADULT 0.4 MG/DL (0.2-1.0); TOTAL PROTEIN 6.3 GM/DL (6.4-8.2)
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
--- NOTE | 2018-03-08 11:07 | PD.CARD.PN ---
Subjective Subjective Remarks alert in nad Objective Medications Current Medications Medications (Trade) Dose Ordered Sig/Jose De Jesus Route Start Time Stop Time Status Last Admin (Urecholine) 10 mg TID PO 02/27/18 18:00 03/08/18 08:17 (Protonix) 40 mg BID PO 02/27/18 21:00 03/08/18 08:18 (Symbicort 160-4.5 Mcg Inh) 2 puff BID INH 02/27/18 21:00 03/08/18 08:20 Sodium Chloride 1,000 ml @ 30 mls/hr Q24H IV 02/27/18 15:00 03/08/18 01:38 (Tylenol) 650 mg Q6H PRN PO 02/27/18 15:00 02/27/18 20:13 (Morphine Inj) 2 mg Q2H PRN IV PUSH 02/27/18 15:00 03/08/18 08:18 (Tears Naturale Opth Soln) 1 drop TID EACH EYE 02/27/18 18:00 03/08/18 08:20 (Zofran Odt) 4 mg Q6H PRN PO 02/27/18 15:15 03/05/18 08:19 (Albuterol Neb) 2.5 mg Q2HR NEB PRN INH 02/27/18 15:00 ([facility]) 1 Q361D XX 02/27/18 15:00 02/27/18 15:00 (Chlorhexidine 2% Cloth) Taper DAILY@04 TOP 02/28/18 04:00 02/24/19 03:59 03/07/18 03:32 (Chlorhexidine 2% Cloth) 3 pack UNSCH PRN TOP 02/27/18 15:00 (Asha-Colace) 1 tab BID PO 02/27/18 21:00 03/08/18 08:17 (Milk Of Magnesia Liq) 30 ml Q12H PRN PO 02/27/18 15:00 (Senokot) 17.2 mg Q12H PRN PO 02/27/18 15:00 (Dulcolax Supp) 10 mg DAILY PRN RECTAL 02/27/18 15:00 (Lactulose Liq) 30 ml DAILY PRN PO 02/27/18 15:00 (Compazine Inj) 5 mg Q4H PRN IV PUSH 02/27/18 15:30 (Phenergan Supp) 25 mg Q6H PRN RECTAL 02/27/18 15:30 (D50w (Vial) Inj) 50 ml UNSCH PRN IV PUSH 02/27/18 15:30 (Glucagon Inj) 1 mg UNSCH PRN OTHER 02/27/18 15:30 (NovoLIN R SUPPLEMENTAL SCALE) 1 ACHS SLIDING SCALE SQ 02/27/18 17:00 03/07/18 16:51 (Synthroid) 25 mcg DAILY@0600 PO 03/01/18 08:45 03/08/18 05:42 (Apresoline Inj) 20 mg Q4H PRN IV PUSH 03/04/18 08:45 (Percocet 7.5-325 Mg) 1 tab Q4H PRN PO 03/04/18 14:00 03/08/18 04:24 (Apresoline) 20 mg Q4H PRN PO 03/04/18 21:00 03/07/18 00:25 (NS Flush) 2 ml BID IV FLUSH 03/05/18 21:00 03/07/18 22:22 (NS Flush) 2 ml UNSCH PRN IV FLUSH 03/05/18 17:15 (Keflex) 500 mg Q8HR PO 03/06/18 14:00 03/09/18 13:59 03/08/18 05:42 (Norvasc) 5 mg BID PO 03/07/18 11:00 03/08/18 08:17 (Flomax) 0.4 mg DAILY PO 03/07/18 11:00 03/08/18 08:17 (Prinivil) 5 mg DAILY PO 03/07/18 11:00 03/08/18 08:18 Vital Signs / I&O Vital Signs Date Time Temp Pulse Resp B/P (MAP) Pulse Ox O2 Delivery O2 Flow Rate FiO2 03/08/18 10:47 21 03/08/18 08:15 Room Air 03/08/18 08:06 97.4 73 18 132/84 (100) 94 03/08/18 04:39 97.7 87 18 126/77 (93) 94 03/08/18 00:05 98.3 87 18 146/85 (105) 94 03/07/18 21:00 Room Air 03/07/18 20:39 98.6 78 18 131/87 (102) 95 03/07/18 18:38 97.8 81 18 144/89 (107) 96 03/07/18 16:00 99 03/07/18 16:00 97.7 100 24 132/78 (96) 94 03/07/18 14:00 82 03/07/18 12:00 77 03/07/18 12:00 98.4 77 17 126/83 (97) 94 03/07/18 11:09 97 21 I/O 03/07/18 03/07/18 03/07/18 03/08/18 03/08/18 03/08/18 07:00 15:00 23:00 07:00 15:00 23:00 Intake Total 400 ml 1030 ml 300 ml Output Total 800 ml 450 ml 500 ml 200 ml Balance -400 ml 580 ml 300 ml -500 ml -200 ml Intake Oral 400 ml 1030 ml IV Total 300 ml Output Urine Total 800 ml 450 ml 500 ml 200 ml # Voids 3 # Bowel Movements 1 Physical Exam GENERAL: SKIN: Warm and dry. HEAD: Normocephalic. EYES: No scleral icterus. No injection or drainage. NECK: Supple, trachea midline. No JVD or lymphadenopathy. CARDIOVASCULAR: Regular rate and rhythm without murmurs, gallops, or rubs. RESPIRATORY: Breath sounds equal bilaterally. No accessory muscle use. GASTROINTESTINAL: Abdomen soft, non-tender, nondistended. MUSCULOSKELETAL: No cyanosis, or edema. BACK: Nontender without obvious deformity. No CVA tenderness. Laboratory Laboratory Tests Test 03/08/18 07:06 White Blood Count 9.6 TH/MM3 Red Blood Count 4.51 MIL/MM3 Hemoglobin 13.9 GM/DL Hematocrit 40.6 % Mean Corpuscular Volume 90.1 FL Mean Corpuscular Hemoglobin 30.7 PG Mean Corpuscular Hemoglobin Concent 34.1 % Red Cell Distribution Width 14.2 % Platelet Count 435 TH/MM3 Mean Platelet Volume 8.4 FL Neutrophils (%) (Auto) 77.6 % Lymphocytes (%) (Auto) 9.1 % Monocytes (%) (Auto) 11.4 % Eosinophils (%) (Auto) 1.4 % Basophils (%) (Auto) 0.5 % Neutrophils # (Auto) 7.5 TH/MM3 Lymphocytes # (Auto) 0.9 TH/MM3 Monocytes # (Auto) 1.1 TH/MM3 Eosinophils # (Auto) 0.1 TH/MM3 Basophils # (Auto) 0.0 TH/MM3 CBC Comment DIFF FINAL Differential Comment Blood Urea Nitrogen 19 MG/DL Creatinine 1.00 MG/DL Random Glucose 105 MG/DL Total Protein 6.3 GM/DL Albumin 2.9 GM/DL Calcium Level 8.5 MG/DL Phosphorus Level 3.3 MG/DL Magnesium Level 2.1 MG/DL Alkaline Phosphatase 64 U/L Aspartate Amino Transf (AST/SGOT) 17 U/L Alanine Aminotransferase (ALT/SGPT) 21 U/L Total Bilirubin 0.4 MG/DL Sodium Level 134 MEQ/L Potassium Level 4.1 MEQ/L Chloride Level 99 MEQ/L Carbon Dioxide Level 25.0 MEQ/L Anion Gap 10 MEQ/L Estimat Glomerular Filtration Rate 74 ML/MIN Assessment and Plan Problem List: (1) Asystole ICD Codes: I46.9 - Cardiac arrest, cause unspecified (2) S/P cardiac pacemaker procedure ICD Codes: Z95.0 - Presence of cardiac pacemaker Assessment and Plan 1.) Asystole - stable pod # 3 ppm placement, stable Nick Bennett MD Mar 08, 2018 11:07
[2018-03-08 12:04] VITALS: BP 116/73; PULSE 94; RESP 18; TEMP 98; O2SAT 94
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
[2018-03-08] MEDS ORDERED: LEVO25TA4 PO (13:23)
[2018-03-08] MEDS ORDERED: LISI-519 PO (13:23)
[2018-03-08] MEDS ORDERED: AMLO5 PO (13:23)
== END 2018-03-08 17:30 | disposition home health service (06) | DRG 40 ==
LOC: NEPD 11:43 → NEDA 14:52 → N03A 16:51 → N05A 03-07 18:15
PROVIDERS: ADMIT Hospitalist; ATTEND Hospitalist
PROC: 02HK3JZ Insertion of Pacemaker Lead into Right Ventricle, Percutaneous Approach (ICD-10-PCS; principal; 2018-03-05)
PROC: 0JH606Z Insertion of Pacemaker, Dual Chamber into Chest Subcutaneous Tissue and Fascia, Open Approach (ICD-10-PCS; 2018-03-05)
PROC: 02H63JZ Insertion of Pacemaker Lead into Right Atrium, Percutaneous Approach (ICD-10-PCS; 2018-03-05)
DX: S06.6X9A Traumatic subarachnoid hemorrhage with loss of consciousness of unspecified duration, initial encounter (principal); I46.2 Cardiac arrest due to underlying cardiac condition; N17.9 Acute kidney failure, unspecified; I44.2 Atrioventricular block, complete; E87.4 Mixed disorder of acid-base balance; I10 Essential (primary) hypertension; S01.01XA Laceration without foreign body of scalp, initial encounter; D47.3 Essential (hemorrhagic) thrombocythemia; R00.1 Bradycardia, unspecified; J44.9 Chronic obstructive pulmonary disease, unspecified; D72.829 Elevated white blood cell count, unspecified; E78.5 Hyperlipidemia, unspecified; H91.10 Presbycusis, unspecified ear; S06.5X9A Traumatic subdural hemorrhage with loss of consciousness of unspecified duration, initial encounter; S02.119A Unspecified fracture of occiput, initial encounter for closed fracture; R40.2412 Glasgow coma scale score 13-15, at arrival to emergency department; K44.9 Diaphragmatic hernia without obstruction or gangrene; R73.9 Hyperglycemia, unspecified; W19.XXXA Unspecified fall, initial encounter; K21.9 Gastro-esophageal reflux disease without esophagitis; N40.0 Benign prostatic hyperplasia without lower urinary tract symptoms; F43.10 Post-traumatic stress disorder, unspecified; F17.210 Nicotine dependence, cigarettes, uncomplicated; D64.9 Anemia, unspecified; R29.6 Repeated falls; E03.9 Hypothyroidism, unspecified; I16.0 Hypertensive urgency; Z98.1 Arthrodesis status; Y92.010 Kitchen of single-family (private) house as the place of occurrence of the external cause
CPT/HCPCS: 33208; 36600; 70450; 71045; 80048; 80053; 82550; 82552; 82805; 82948; 83605; 83735; 84100; 84132; 84439; 84443; 84481; 84484; 85025; 85610; 85730; 87641; 93005; 93306; 93880; 94150; 94640; 94664; 95819; 96361; 96372; 96374; 96375; C1785; C1898; J0690; J0780; J1100; J1170; J1200; J2270; J2370; J2405; J2550; J3475; J7030; J7060; J7120

== ENCOUNTER 2018-03-11 17:37 | Emergency (ER) | payer MEDICARE, OTHER ==
[~2018-03-11] VITALS: Ht 172.7 cm; Wt 73.0 kg
[~2018-03-11 17:37] MED LIST changes: +AMLO5 PO; -CYCL1PAK PO; -DILA4TAB10 PO; +LEVO25TA4 PO; +LISI-519 PO; -METO25 PO; -NICO21DI24 TD; -ZOLP1TAB32 PO
[2018-03-11] MEDS ORDERED: IOHEXOL 350 MG/ML 10 ML VIAL (for RAD DIAG) IVCONTRAST ONE (17:38)
[2018-03-11 18:56] VITALS: BP 165/105; PULSE 106; RESP 22; TEMP 98.8; O2SAT 96
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
[2018-03-11 20:00] VITALS: RESP 18; O2SAT 100
--- NOTE | 2018-03-11 20:04 | RADRPT ---
EXAM DATE: 03/11/2018 7:45 PM EDT AGE/SEX: 67 years / Male INDICATIONS: Palpitations. CLINICAL DATA: This is the patient's initial encounter. Patient reports that signs and symptoms have been present for 1 day and indicates a pain score of 5/10. MEDICAL/SURGICAL HISTORY: . Cardiovascular disease. Hypertension. Chronic obstructive pulmonary disease. Pacemaker. Thoracic fusion. COMPARISON: [facility] [place], CHEST SINGLE AP, 03/05/2018. . FINDINGS: Pacer leads overlie right atrium and right ventricle. Previous spinal fixation. Minimal basilar atele ctasis or scarring. No effusion or pneumothorax. CONCLUSION: Pacer leads overlying right atrium and right ventricle. Minimal basilar atelectasis or scarring. Electronically signed by: Ramos Rubio MD 03/11/2018 8:03 PM EDT
[2018-03-11 20:08] VITALS: BP 157/94; PULSE 84; RESP 18; O2SAT 95
[2018-03-11 20:27] LABS: AUTOMATED NEUTROPHIL # 12.5 TH/MM3 (1.8-7.7); BASOPHIL # 0.1 TH/MM3 (0-0.2); BASOPHIL % 0.7 % (0.0-2.0); EOSINOPHIL # 0.1 TH/MM3 (0-0.4); EOSINOPHIL % 0.9 % (0.0-4.0); HEMOGLOBIN 14.7 GM/DL (13.0-17.0); LYMPH % 6.1 % (9.0-44.0); LYMPHOCYTE # 0.9 TH/MM3 (1.0-4.8); MEAN CORPUSCULAR HGB CONC 33.4 % (32.0-36.0); MEAN PLATELET VOLUME 8.5 FL (7.0-11.0); MONO % 8.4 % (0.0-8.0); MONOCYTE # 1.2 TH/MM3 (0-0.9); NEUT % 83.9 % (16.0-70.0); PLATELET COUNT 591 TH/MM3 (150-450); RED BLOOD COUNT 4.89 MIL/MM3 (4.50-5.90); WHITE BLOOD COUNT 14.9 TH/MM3 (4.0-11.0)
[2018-03-11 20:41] LABS: ALBUMIN 3.5 GM/DL (3.4-5.0); ALT (GPT) 40 U/L (12-78); AST (GOT) 29 U/L (15-37); BICARBONATE 22.3 MEQ/L (21.0-32.0); CALCIUM 9.4 MG/DL (8.5-10.1); CHLORIDE 104 MEQ/L (98-107); CREATININE 1.13 MG/DL (0.60-1.30); GLOMERULAR FILTRATION RATE 65 ML/MIN (>89); GLUCOSE,RANDOM 99 MG/DL (74-106); MAGNESIUM 2.1 MG/DL (1.5-2.5); SODIUM (NA) 138 MEQ/L (136-145)
[2018-03-11 20:42] LABS: INTERNATIONAL NORMALIZED RATIO 1.2 RATIO; PROTHROMBIN TIME - PATIENT 12.1 SEC (9.8-11.6)
[2018-03-11 20:45] LABS: D-DIMER 1.31 MG/L FEU (0.00-0.50)
[2018-03-11 21:02] LABS: ALKALINE PHOSPHATASE 77 U/L (45-117); BLOOD UREA NITROGEN 22 MG/DL (7-18); TOTAL BILIRUBIN ADULT 0.5 MG/DL (0.2-1.0); TOTAL PROTEIN 7.2 GM/DL (6.4-8.2); TROPONIN I LESS THAN 0.02 NG/ML (0.02-0.05)
[2018-03-11] MEDS ORDERED: LEVOFLOXACIN 500 MG PREMIX INJ 100 ML IV ONE (21:15)
[2018-03-11] MEDS ORDERED: RESP: ALBUTEROL 2.5 MG/IPRATROPIUM 0.5 MG NEB (SCH) NEB ONE (21:15)
--- NOTE | 2018-03-11 22:01 | RADRPT ---
EXAM DATE: 03/11/2018 9:52 PM EDT AGE/SEX: 67 years / Male INDICATIONS: Rapid heart rate. CLINICAL DATA: This is the patient's initial encounter. Patient reports that signs and symptoms have been present for 2 days and indicates a pain score of 0/10. MEDICAL/SURGICAL HISTORY: Cardiovascular disease. Hypertension. Chronic obstructive pulmonary dis ease. GERD Pacemaker. Fusion, thoracic. RADIATION DOSE: 20.34 CTDI (mGy) COMPARISON: No prior [place] exams available for comparison. TECHNIQUE: Volumetric scanning was performed using a multi-row detector CT scanner during bolus infu hailey of 65 ml Omnipaque 350 (iohexol) nonionic water-soluble contrast as a single exam dose. The nadeen a was post processed with a variety of visualization algorithms including full volume maximum intensi ty projection and sliding thin slab reformation. Using automated exposure control and adjustment of the mA and/or kV according to patient size, radiation dose was kept as low as reasonably achievable t o obtain optimal diagnostic quality images. FINDINGS: There is basilar dependent atelectasis and scarring in the lungs. No filling defects are seen to suggest pulmonary embolic disease. There is no hilar, mediastinal or axillary adenopathy. Hiatal hernia is present. There is previous spine fixation. Pacer leads overlie right atrium and right ventricle. CONCLUSION: 1. Negative for pulmonary embolus. 2. Basilar dependent atelectasis and scarring in the lungs. Hiatal hernia. Pacer leads present. Electronically signed by: Ramos Rubio MD 03/11/2018 9:59 PM EDT
[2018-03-11] MEDS ORDERED: LEVA500T33 PO (22:15)
[2018-03-11] MEDS ORDERED: MEDR4PAK PO (22:15)
--- NOTE | 2018-03-12 16:10 | EKG ---
Date Performed: 03/11/2018 Time Performed: 20:28:33 PTAGE: 67 years EKG: Sinus rhythm NONSPECIFIC T-WAVE ABNORMALITY ABNORMAL ECG PREVIOUS TRACING : 03/06/2018 07.20 Premature ventricular contractions. Since the prior tracing , there has been a slight increase in the T-wave changes and the PVCs are new. DOCTOR: Berna Buenrostro Interpretating Date/Time 03/12/2018 16:09:19
== END 2018-03-11 23:45 | disposition home or self-care (01) ==
LOC: NEPC 17:37 → NEDAMB 23:45
DX: J44.1 Chronic obstructive pulmonary disease with (acute) exacerbation (principal); R94.31 Abnormal electrocardiogram [ECG] [EKG]; I10 Essential (primary) hypertension; I25.10 Atherosclerotic heart disease of native coronary artery without angina pectoris; E11.9 Type 2 diabetes mellitus without complications; E78.00 Pure hypercholesterolemia, unspecified; F43.10 Post-traumatic stress disorder, unspecified; Z95.0 Presence of cardiac pacemaker; Z87.891 Personal history of nicotine dependence; Z79.899 Other long term (current) drug therapy
CPT/HCPCS: 71045; 71275; 80053; 82550; 83735; 83880; 84443; 84484; 85025; 85379; 85610; 85730; 93005; 94664; 96374; 99285; J1956; Q9967